=== PATIENT | male | born 1965 | race Caucasian/White ===

== ENCOUNTER 2016-05-14 15:50 | Inpatient (IN) | payer OTHER ==
[2016-05-14] MEDS ORDERED: Cardizem IV 50 MG/10 ML IV ONE ×6 (16:12→17:16)
[2016-05-14] MEDS ORDERED: CARDIZEM DRIP 100 MG/100 ML D5W 100 ML IV SCH (16:15)
[2016-05-14] MEDS ORDERED: CARDIZEM DRIP 100 MG/100 ML D5W 100 ML IV ONE (16:21)
[2016-05-14] MEDS ORDERED: Sodium Chloride 0.9% 1000 ML 1,000 ML ONE (16:25)
[2016-05-14] MEDS: Sodium Chloride 0.9% 1000 ML 1,000 ML IV SCH ×2 (16:27→20:11)
--- NOTE | 2016-05-14 16:37 | ERPHSYRPT ---
- History of Present Illness Source: patient Exam Limitations: clinical condition Patient Subjective Stated Complaint: PT STATES THAT TODAY HE STARTED FEELING A LITTLE NAUSEATED THIS MORNING STATES THAT WHEN HE STOOD UP THAT THE ROOM STARTED SPINNING STATES HE HAS A HX OF PE STATES HE TAKES COUMADIN STATES THAT HE HAS ALSO NOTICED HIS HEART BEATING SOMEWHAT FAST TODAY. Triage Nursing Assessment: PT ALERT AND ORIENTED X 3 PINK WARM AND DRY RESP EASY NON LABORED PT AMBULATED TO ROOM WITHOUT DIFFICULTY. PUPILS ROUND EQUAL AND REACTIVE. Physician History: Approximately 2 hours prior to admission patient noted palpitations and some dizziness with previous history of pulmonary embolism in the past 5 years ago and placed on Coumadin since that time. He has been on Toprol 25 twice a day since that time. Patient has not seen a script girl past several years Dr. Scales is his primary care provider. Has had no recent fever or chills. Takes his Coumadin religiously. No chest pain only the palpitations. No recent signs or symptoms of DVT. Timing/Duration: today Activities at Onset: none Quality: other (as above) Location: substernal Chest Pain Radiation: no radiation Severity of Pain-Max: none Modifying Factors: Improves With: nothing Nitro Today/Relief: no nitro taken today Aspirin Treatment Today: no aspirin today Associated Symptoms: other (transient dizziness) Prior Chest Pain/Cardiac Workup: no prior chest pain Allergies/Adverse Reactions: No Known Drug Allergies Allergy (Unverified 11/05/11 21:14) Home Medications: Metoprolol Tartrate 25 mg [Lopressor 25MG Tab] 25 mg PO BID 05/14/16 [ History] Warfarin Sodium 3 mg [Coumadin 3 MG] 3 mg PO DAILY 05/14/16 [History] Hx Tetanus, Diphtheria Vaccination/Date Given: No (UNKNOWN) Hx Influenza Vaccination/Date Given: No Hx Pneumococcal Vaccination/Date Given: No Immunizations Up to Date: Yes - Review of Systems Constitutional: Other (as noted in history of present illness) Eyes: No Symptoms Ears, Nose, & Throat: No Symptoms Respiratory: No Symptoms Cardiac: Palpitations Abdominal/Gastrointestinal: No Symptoms Genitourinary Symptoms: No Symptoms Musculoskeletal: No Symptoms Skin: No Symptoms Neurological: No Symptoms Psychological: No Symptoms, Memory Loss Hematologic/Lymphatic: No Symptoms Immunological/Allergic: No Symptoms - Past Medical History Pertinent Past Medical History: Yes Neurological History: No Pertinent History Cardiac History: Arrhythmia Respiratory History: Pulmonary Embolism Endocrine Medical History: No Pertinent History Musculoskeletal History: Osteoarthritis GI Medical History: Hepatitis Other Medical History: PE,AFIB - Past Surgical History Past Surgical History: Yes Other Surgical History: DETACHED RETINA - Social History Smoking Status: Former smoker Exposure to second hand smoke: Yes Drug Use: none Patient Lives Alone: No - Nursing Vital Signs Temperature: 97.6 F Temperature Source: Oral Pulse Rate: 141 Respiratory Rate: 18 - Physical Exam General Appearance: no apparent distress Eye Exam: PERRL/EOMI Ears, Nose, Throat Exam: normal ENT inspection Neck Exam: normal inspection, non-tender, supple, full range of motion Respiratory Exam: normal breath sounds, lungs clear, airway intact Cardiovascular Exam: irregular, capillary refill <2 sec Gastrointestinal/Abdomen Exam: soft, normal bowel sounds Male Genitalia Exam: normal genitalia Rectal Exam: deferred Back Exam: normal inspection Extremity Exam: normal inspection Neurologic Exam: alert, oriented x 3, cooperative Skin Exam: normal color, warm, dry Lymphatic Exam: No adenopathy SpO2 Interpretation: normal SpO2: 100 Oxygen Delivery: Room Air - Course Nursing assessment & vital signs reviewed: Yes EKG Interpreted by Me: RATE, Sinus Tach, Left Clayton Deviation, NORMAL INTERVALS, NORMAL QRS, Non-specific ST Changes, Other (patient with sinus tachycardia versus SVT with unfortunately on rhythm strip atrial fibrillation ) Rhythm Strip: Rate (150), Atrial Fibrillation - Radiology Exams Chest X-ray Interpretation: Reviewed by me, Discussed w/ radiologist, Negative Ordered Tests: Active Orders 24 hr Category Date Time Status Bedrest with BRP/BSC ROUTINE Activity 05/14/16 18:40 Active Admission/Status Order ROUTINE Care 05/14/16 18:40 Active Stretcher And Drier STAT Care 05/14/16 16:02 Active Code Status Order ROUTINE Care 05/14/16 18:40 Active EKG-ER Only STAT Care 05/14/16 16:02 Active IV Care Q1H Care 05/14/16 18:40 Active IV Insertion STAT Care 05/14/16 16:02 Active Miscellaneous Nursing Order ROUTINE Care 05/14/16 18:42 Active Prashanth Hose, Apply ROUTINE Care 05/14/16 18:40 Active Telemetry ROUTINE Care 05/14/16 18:40 Completed Weight,Daily 0600 Care 05/14/16 18:40 Active Cardiac Diet Diet 05/14/16 Dinner Active CHEST 1 VIEW (PORTABLE) Stat Exams 05/14/16 16:03 Completed BMP AM.LAB Lab 05/15/16 04:00 Ordered CBC W DIFF AM.LAB Lab 05/15/16 04:00 Ordered CBC W DIFF Stat Lab 05/14/16 16:08 Completed CMP Stat Lab 05/14/16 16:08 Completed D-DIMER QUANTITATION Stat Lab 05/14/16 16:08 Completed LIPID PROFILE AM.LAB Lab 05/15/16 04:00 Ordered MAGNESIUM Stat Lab 05/14/16 16:08 Completed NT PRO BNP Stat Lab 05/14/16 16:08 Completed PROTIME WITH INR AM.LAB Lab 05/15/16 04:00 Ordered PROTIME WITH INR Stat Lab 05/14/16 16:08 Completed PTT Stat Lab 05/14/16 16:08 Completed T4 Stat Lab 05/14/16 16:08 Completed TROPONIN Stat Lab 05/14/16 16:08 Completed TSH, 3RD Generation Stat Lab 05/14/16 16:08 Completed Medication Summary Generic Name Dose Route Start Last Admin Trade Name Freq PRN Reason Stop Dose Admin Acetaminophen 650 mg 05/14/16 18:39 Tylenol 325 Mg PO 06/13/16 18:38 Q4H PRN PRN PAIN AND/OR FEVER Sodium Chloride 1,000 mls @ 100 mls/hr 05/14/16 16:15 05/14/16 20:11 Sodium Chloride 0.9% 1000 Ml IV 06/13/16 16:14 100 mls/hr .Q10H RALPH Administration Diltiazem HCl 100 mls @ 20 mls/hr 05/14/16 18:00 Cardizem Drip 100 Mg/100 Ml D5w IV 06/13/16 17:59 .Q5H RALPH Sodium Chloride 500 mls @ 100 mls/hr 05/14/16 18:45 Sodium Chloride 0.9% 500 Ml IV 06/13/16 18:44 .Q5H RALPH Metoprolol Tartrate 25 mg 05/14/16 22:00 Lopressor 25mg Tab PO 06/13/16 21:59 BID RALPH Ondansetron HCl 4 mg 05/14/16 18:39 Zofran 4 Mg/2 Ml Vial IV 06/13/16 18:38 Q4H PRN PRN NAUSEA/VOMITING Discontinued Medications Generic Name Dose Route Start Last Admin Trade Name Freq PRN Reason Stop Dose Admin Diltiazem HCl 10 mg 05/14/16 16:12 05/14/16 16:28 Cardizem Iv 50 Mg/10 Ml IV 05/14/16 16:13 10 mg STAT ONE Administration Diltiazem HCl Confirm 05/14/16 16:22 Cardizem Iv 50 Mg/10 Ml Administered 05/14/16 16:23 Dose 50 mg IV .STK-MED ONE Diltiazem HCl 10 mg 05/14/16 16:44 05/14/16 16:50 Cardizem Iv 50 Mg/10 Ml IV 05/14/16 16:45 10 mg STAT ONE Administration Diltiazem HCl Confirm 05/14/16 16:49 Cardizem Iv 50 Mg/10 Ml Administered 05/14/16 16:50 Dose 50 mg IV .STK-MED ONE Diltiazem HCl 20 mg 05/14/16 17:01 05/14/16 17:18 Cardizem Iv 50 Mg/10 Ml IV 05/14/16 17:02 20 mg STAT ONE Administration Diltiazem HCl Confirm 05/14/16 17:16 Cardizem Iv 50 Mg/10 Ml Administered 05/14/16 17:17 Dose 50 mg IV .STK-MED ONE Diltiazem HCl 100 mls @ 10 mls/hr 05/14/16 16:15 05/14/16 16:29 Cardizem Drip 100 Mg/100 Ml D5w IV 06/13/16 16:14 10 mls/hr .Q10H RALPH Administration Protocol Diltiazem HCl Confirm 05/14/16 16:21 Cardizem Drip 100 Mg/100 Ml D5w Administered 05/14/16 16:22 Dose 100 mls @ ud IV .STK-MED ONE Sodium Chloride Confirm 05/14/16 16:25 Sodium Chloride 0.9% 1000 Ml Administered 05/14/16 16:26 Dose 1,000 mls @ ud .ROUTE .STK-MED ONE Lab/Rad Data: Laboratory Result Diagrams 05/14/16 16:08 05/14/16 16:08 Laboratory Results 05/14/16 05/14/16 05/14/16 Range/Units 16:08 16:08 16:08 WBC 8.2 (4.0-10.5) K/mm3 RBC 5.24 (4.1-5.6) M/mm3 Hgb 15.0 (12.5-18.0) gm/dl Hct 43.7 (42-50) % MCV 83.4 (78-100) fl MCH 28.6 (26-32) pg MCHC 34.3 (32-36) g/dl RDW 13.7 (11.5-14.0) % Plt Count 276 (150-450) K/mm3 MPV 10.3 H (6-9.5) fl Gran % 53.9 (36.0-66.0) % Lymphocytes % 34.1 (24.0-44.0) % Monocytes % 10.3 (0.0-12.0) % Eosinophils % 1.5 (0.00-5.0) % Basophils % 0.2 (0.0-0.4) % Basophils # 0.02 (0-0.4) INR 2.47 (0.8-3.0) PTT 48.0 H (24.1-36.1) SECONDS D-Dimer < 0.20 (0.00-0.49) mg/L Sodium 141 (136-145) mEq/L Potassium 3.5 (3.5-5.1) mEq/L Chloride 104 (98-107) mEq/L Carbon Dioxide 24.0 (21-32) mEq/L Anion Gap 16.3 H (5-15) MEQ/L BUN 11 (9-20) mg/dL Creatinine 1.12 (0.55-1.30) mg/dl Estimated GFR > 60 ML/MIN Glucose 130 H (70-110) MG/DL Calcium 9.1 (8.5-10.1) mg/dL Magnesium 1.9 (1.8-2.4) mg/dL Total Bilirubin 0.2 (0.2-1.0) mg/dL AST 34 (15-37) U/L ALT 30 (12-78) U/L Alkaline Phosphatase 91 (46-116) U/L Troponin I < 0.017 (0.000-0.056) ng/ml NT-Pro-B Natriuret Pep 720 H (0-125) pg/ml Serum Total Protein 8.2 (6.4-8.2) gm/dL Albumin 3.9 (3.4-5.0) g/dL Thyroxine (T4) 10.0 (4.7-13.3) UG/DL TSH 3rd Generation 1.998 (0.358-3.740) mIU/L - Progress Progress: improved Air Movement: good Progress Note: 05/14/16 18:35Despite Cardizem repeat boluses and increased intravenous infusion patient has not converted or slowed ventricular response at this time. After IV fluid bolus vital signs are stable. Case discussed with Dr. Scales as remainder of cardiac workup is negative and he will be admitted ICU on Cardizem drip and if does not convert in the next couple of hours further evaluation and treatment will be considered. This is in agreement to the patient and family. Blood Culture(s) Obtained: No Antibiotics given: No Discussed with : Yordy Will see patient in: hospital (observation) Counseled pt/family regarding: lab results, diagnosis, rad results - Departure Time of Disposition: 18:38 Departure Disposition: Observation Clinical Impression: Atrial fibrillation with RVR, SVT (supraventricular tachycardia) Condition: Fair Critical Care Time: No
[2016-05-14 16:41] LABS: BASOPHIL % 0.2 % (0.0-0.4); Eosinophil % 1.5 % (0.00-5.0); Granulocytes % 53.9 % (36.0-66.0); Lymphocytes % 34.1 % (24.0-44.0); Mean Cell Volume 83.4 fl (78-100); Mean Corpuscular Hemoglobin 28.6 pg (26-32); Mean Platelet Volume 10.3 fl (6-9.5); Monocytes % 10.3 % (0.0-12.0); Platelet Count 276 K/mm3 (150-450); Red Blood Count 5.24 M/mm3 (4.1-5.6); Red Cell Distribution Width 13.7 % (11.5-14.0); White Blood Count 8.2 K/mm3 (4.0-10.5)
--- NOTE | 2016-05-14 16:46 | XRAY ---
Indication: Tachycardia and dizziness. Comparison: November 05, 2011. Portable chest remains hyperinflated with stable blunting of the right costophrenic angle. Remaining lungs clear. Heart is not enlarged. Vascularity normal. Bony thorax intact again with mild degenerative changes. Impression: Stable nonacute hyperinflated chest with chronic features.
[2016-05-14 16:54] LABS: INR 2.47 (0.8-3.0); PROTIME 26.9 SECONDS (8.83-12.87)
[2016-05-14 17:17] LABS: ALBUMIN 3.9 g/dL (3.4-5.0); ALKALINE PHOSPHATASE 91 U/L (46-116); ANION GAP 16.3 MEQ/L (5-15); BILIRUBIN,TOTAL 0.2 mg/dL (0.2-1.0); BLOOD UREA NITROGEN 11 mg/dL (9-20); CHLORIDE 104 mEq/L (98-107); Glucose 130 MG/DL (70-110); MAGNESIUM 1.9 mg/dL (1.8-2.4); Potassium 3.5 mEq/L (3.5-5.1); SGOT/AST 34 U/L (15-37); SGPT/ALT 30 U/L (12-78); SODIUM 141 mEq/L (136-145); Total Protein 8.2 gm/dL (6.4-8.2)
[2016-05-14 17:18] LABS: TROPONIN < 0.017 ng/ml (0.000-0.056)
[2016-05-14] MEDS ORDERED: TYLENOL 325 MG PO PRN (18:39)
[2016-05-14] MEDS ORDERED: Zofran 4 MG/2 ML VIAL IV PRN (18:39)
[2016-05-14] MEDS ORDERED: Sodium Chloride 0.9% 500 ML 500 ML IV SCH (18:45)
[2016-05-14] MEDS: CARDIZEM DRIP 100 MG/100 ML D5W 100 ML IV SCH (20:54)
[2016-05-15] MEDS: Lopressor 25MG Tab PO SCH ×2 (02:17→09:10)
[2016-05-15 04:19] VITALS: O2SAT 97
[2016-05-15 05:13] LABS: BASOPHIL % 0.3 % (0.0-0.4); Eosinophil % 1.2 % (0.00-5.0); Granulocytes % 66.1 % (36.0-66.0); Lymphocytes % 23.2 % (24.0-44.0); Mean Cell Volume 83.9 fl (78-100); Mean Corpuscular Hemoglobin 28.5 pg (26-32); Mean Platelet Volume 9.6 fl (6-9.5); Monocytes % 9.2 % (0.0-12.0); Platelet Count 235 K/mm3 (150-450); Red Blood Count 4.92 M/mm3 (4.1-5.6); Red Cell Distribution Width 13.7 % (11.5-14.0); White Blood Count 7.6 K/mm3 (4.0-10.5)
[2016-05-15 05:33] LABS: INR 2.99 (0.8-3.0); PROTIME 32.4 SECONDS (8.83-12.87)
[2016-05-15] MEDS: Sodium Chloride 0.9% 1000 ML 1,000 ML IV SCH (06:11)
--- NOTE | 2016-05-15 07:51 | PCM.HP ---
History of Present Illness - Chief Complaint Chief Complaint: A fib with RVR History of Present Illness: is a 50 year old male who presented to the ER yesterday with dizziness and fatigue, was found to have atrial fibrilattion with rvr, he denies chest pain or dyspnea. has no complaints currently at rest. He has no cardiac history, has a history of PE in the past so is on coumadin. - Review of Systems Constitutional: Fatigue, No Fever, No Chills Respiratory: No Cough, No Short Of Breath Cardiac: No Chest Pain, No Syncope Abdominal/Gastrointestinal: No Abdominal Pain, No Nausea, No Vomiting, No Diarrhea Skin: No Rash Neurological: Dizziness All Other Systems: Reviewed and Negative Medications & Allergies Home Medications: Home Medication List Metoprolol Tartrate 25 mg [Lopressor 25MG Tab] 25 mg PO BID 05/14/16 [ History Confirmed 05/14/16] Warfarin Sodium 3 mg [Coumadin 3 MG] 3 mg PO DAILY 05/14/16 [History Confirmed 05/14/16] Allergies/Adverse Reactions: Allergies Allergy/AdvReac Type Severity Reaction Status Date / Time No Known Drug Allergies Allergy Unverified 11/05/11 21:14 - Past Medical History Past Medical History: Yes Neurological History: No Pertinent History Cardiac History: Arrhythmia Respiratory History: Pulmonary Embolism Endocrine Medical History: No Pertinent History Musculoskelatal History: Osteoarthritis GI Medical History: Hepatitis History: No Pertinent History Pyscho-Social History: No Pertinent History Male Reproductive Disorders: No Pertinent History Comment: PE,AFIB - Past Surgical History Past Surgical History: Yes Neuro Surgical History: No Pertinent History Cardiac History: Cardiac Catheterization Respiratory Surgery: No Pertinent History GI Surgical History: No Pertinent History Genitourinary Surgical Hx: No Pertinent History Musculskeletal Surgical Hx: No Pertinent History Male Surgical History: No Pertinent History Other Surgical History: DETACHED RETINA - Social History Smoking Status: Former smoker Exposure to second hand smoke: Yes Alcohol: None Drug Use: none - Physical Exam Vital Signs: Vital Signs - 24 hr Temp Pulse Resp BP Pulse Ox 05/15/16 07:25 97.9 F 155 H 18 103/58 97 05/15/16 04:00 125 H 16 95/74 97 05/15/16 00:01 78 05/15/16 00:00 98.0 F 78 16 93/67 99 05/14/16 23:07 103 H 109/66 05/14/16 22:00 86 87/68 05/14/16 20:46 97.6 F 141 H 18 100 05/14/16 19:40 98.0 F 154 H 18 95/69 96 05/14/16 17:50 148 H 18 99/73 100 05/14/16 17:23 145 H 22 112/82 05/14/16 16:56 144 H 18 106/76 99 05/14/16 16:36 145 H 18 113/73 99 05/14/16 16:35 143 H 18 101/73 99 05/14/16 15:55 97.6 F 141 H 18 121/82 100 General Appearance: no apparent distress, alert Neck Exam: normal inspection, non-tender, supple, full range of motion Respiratory Exam: normal breath sounds, lungs clear, No respiratory distress Cardiovascular Exam: tachycardia Gastrointestinal/Abdomen Exam: soft, normal bowel sounds, No tenderness, No mass Extremity Exam: normal inspection, normal range of motion, pelvis stable Skin Exam: normal color, warm, dry, No rash Results - Labs Lab/Micro Results: Lab Results-Last 24 Hours 05/15/16 05/15/16 05/15/16 Range/Units 04:45 04:45 04:45 WBC 7.6 (4.0-10.5) K/mm3 RBC 4.92 (4.1-5.6) M/mm3 Hgb 14.0 (12.5-18.0) gm/dl Hct 41.3 L (42-50) % MCV 83.9 (78-100) fl MCH 28.5 (26-32) pg MCHC 33.9 (32-36) g/dl RDW 13.7 (11.5-14.0) % Plt Count 235 (150-450) K/mm3 MPV 9.6 H (6-9.5) fl Gran % 66.1 H (36.0-66.0) % Lymphocytes % 23.2 L (24.0-44.0) % Monocytes % 9.2 (0.0-12.0) % Eosinophils % 1.2 (0.00-5.0) % Basophils % 0.3 (0.0-0.4) % Basophils # 0.02 (0-0.4) INR 2.99 (0.8-3.0) Glucose (70-110) MG/DL - Other Procedures and Tests Respiratory Therapy 05/16/16 05:00 EKG ROUTINE 05/17/16 05:00 EKG ROUTINE 05/18/16 05:00 EKG ROUTINE Assessment/Plan (1) Atrial fibrillation with RVR Current Visit: Yes Status: Acute Assessment & Plan: on review may in fact be 2:1 Atrial flutter, unable to increase cardizem gtt due to bp being 90's systolic so will add po digoxin at this time and consult with Dr Huerta, patient is on a beta jane already at home. Code(s): I48.91 - UNSPECIFIED ATRIAL FIBRILLATION
[2016-05-15] MEDS ORDERED: Lanoxin 0.125MG TABLET PO SCH (09:00)
[2016-05-15] MEDS: CARDIZEM DRIP 100 MG/100 ML D5W 100 ML IV SCH (09:09)
[2016-05-15] MEDS ORDERED: FLUZONE QUAD 2016-2017 SYRINGE 36MO-64YO IM ONE (11:00)
[2016-05-15 12:51] VITALS: BP 100/70; PULSE 158
== END 2016-05-15 15:55 | disposition short-term general hospital (02) | DRG 310 ==
LOC: ED 15:50 → ICU 19:17 → OBSVTOIN 19:17
PROVIDERS: ADMIT Family Medicine; ATTEND Family Medicine
DX: I48.91 Unspecified atrial fibrillation (principal); Z86.711 Personal history of pulmonary embolism; Z79.01 Long term (current) use of anticoagulants; M19.90 Unspecified osteoarthritis, unspecified site; K75.9 Inflammatory liver disease, unspecified
CPT/HCPCS: 36000; 36415; 71010; 80048; 80053; 83690; 83735; 83880; 84436; 84443; 84480; 84484; 85025; 85379; 85610; 85730; 93005; 93041; 96360; 96361; 96365; 96366; 96376; 99284; 99285; Q3014

== ENCOUNTER 2017-11-06 16:48 | Emergency (ER) | payer OTHER ==
--- NOTE | 2017-11-06 17:30 | ERPHSYRPT ---
- History of Present Illness Time Seen by Provider: 11/06/17 17:27 Source: patient Patient Subjective Stated Complaint: EPISODE OF DIZZINESS AT 1610 LASTING APPROX 10 TO 15 SECONDS. DENIES CP. STATES HAS HX A FIB THAT WAS CONVERTED 1 YEAR AGO WITH MED[facility]. Triage Nursing Assessment: ALERT AND AMBULATORY.. STATES EPISODE OF DIZZINESS TODAY FOR 10-15 SECONDS. DEBNIES CP AT THIS TIME. LUNGS CLEAR. DENIES RESPIRATORY PROBLEMS. Physician History: This is a 52-year-old white male with history of arrhythmia, pulmonary embolism , osteoarthritis, hepatitis He arrives with complaint of a 15 second period, during which patient felt dizzy and weak He denied any chest pain or shortness of breath Past medical history includes arrhythmia, pulmonary embolism, osteoarthritis, hepatitis, atrial fibrillation Past surgical history includes cardiac catheterization Social history patient denies tobacco alcohol or illicit drug use Timing/Duration: today Severity: moderate Modifying Factors: Improves With: nothing Associated Symptoms: other (palpitations and dizziness), No nausea, No vomiting , No abdominal pain, No shortness of breath, No heartburn, No diaphoresis, No cough, No chills, No chest pain, No fever, No headaches, No loss of appetite, No malaise, No rash, No syncope, No seizure, No weakness Allergies/Adverse Reactions: No Known Drug Allergies Allergy (Verified 11/06/17 18:18) Home Medications: Metoprolol Tartrate 25 mg [Lopressor 25MG Tab] 50 mg PO BID 05/14/16 [ History] Warfarin Sodium 3 mg [Coumadin 3 MG] 3 mg PO DAILY 05/14/16 [History] Hx Tetanus, Diphtheria Vaccination/Date Given: No (UNKNOWN) Hx Influenza Vaccination/Date Given: Yes Hx Pneumococcal Vaccination/Date Given: No Immunizations Up to Date: Yes - Review of Systems Constitutional: No Fever, No Chills Eyes: No Symptoms Ears, Nose, & Throat: No Symptoms Respiratory: No Cough, No Dyspnea Cardiac: Palpitations, No Chest Pain, No Edema, No Syncope, No Orthopnea, No PND Abdominal/Gastrointestinal: No Abdominal Pain, No Nausea, No Vomiting, No Diarrhea Genitourinary Symptoms: No Dysuria Musculoskeletal: No Back Pain, No Neck Pain Skin: No Rash Neurological: Dizziness, No Focal Weakness, No Gait Changes, No Irritability, No Lethargy, No Paralysis, No Parasthesia, No Seizure, No Sensory Changes, No Speech Changes, No Tics, No Tremors, No Vertigo Psychological: No Symptoms Endocrine: No Symptoms All Other Systems: Reviewed and Negative - Past Medical History Pertinent Past Medical History: Yes Neurological History: No Pertinent History Cardiac History: Arrhythmia Respiratory History: Pulmonary Embolism Endocrine Medical History: No Pertinent History Musculoskeletal History: Osteoarthritis GI Medical History: Hepatitis History: No Pertinent History Psycho-Social History: No Pertinent History Male Reproductive Disorders: No Pertinent History Other Medical History: PE,AFIB - Past Surgical History Past Surgical History: Yes Neuro Surgical History: No Pertinent History Cardiac: Cardiac Catheterization Respiratory: No Pertinent History Gastrointestinal: No Pertinent History Genitourinary: No Pertinent History Musculoskeletal: No Pertinent History Male Surgical History: No Pertinent History Other Surgical History: DETACHED RETINA - Social History Smoking Status: Never smoker Exposure to second hand smoke: No Drug Use: none Patient Lives Alone: No - Nursing Vital Signs Nursing Vital Signs: Initial Vital Signs Temperature 98.0 F 11/06/17 16:55 Pulse Rate 98 H 11/06/17 16:55 Respiratory Rate 20 11/06/17 16:55 Blood Pressure 105/68 11/06/17 16:55 O2 Sat by Pulse Oximetry 100 11/06/17 16:55 Pain Scale Pain Intensity 0 - Physical Exam General Appearance: no apparent distress, alert Eye Exam: PERRL/EOMI, eyes nml inspection Ears, Nose, Throat Exam: normal ENT inspection, TMs normal, pharynx normal, moist mucous membranes Neck Exam: normal inspection, non-tender, supple, full range of motion Respiratory Exam: normal breath sounds, lungs clear, No respiratory distress Cardiovascular Exam: regular rate/rhythm, normal heart sounds, normal peripheral pulses Gastrointestinal/Abdomen Exam: soft, normal bowel sounds, No tenderness, No mass Back Exam: normal inspection, normal range of motion, No CVA tenderness, No vertebral tenderness Extremity Exam: normal inspection, normal range of motion, pelvis stable Neurologic Exam: alert, oriented x 3, cooperative, normal mood/affect, nml cerebellar function, nml station & gait, sensation nml, No motor deficits Skin Exam: normal color, warm, dry, No rash SpO2 Interpretation: normal (100%) SpO2: 100 Oxygen Delivery: Room Air - Course Nursing assessment & vital signs reviewed: Yes EKG Interpreted by Me: RATE (97 bpm), Sinus Rhythm, NORMAL AXIS, Other (EKG: Sinus rhythm, 97 bpm, normal axis, no acute ST or T wave changes noted) Ordered Tests: Active Orders 24 hr Category Date Time Status IV Insertion STAT Care 11/06/17 17:03 Active Pulse Oximetry (ED) STAT Care 11/06/17 17:30 Active CBC W DIFF Stat Lab 11/06/17 17:30 Completed CMP Stat Lab 11/06/17 Completed D-DIMER QUANTITATION Stat Lab 11/06/17 17:30 Completed TROPONIN Q3H Lab 11/06/17 Completed TROPONIN Q3H Lab 11/06/17 20:30 Ordered TROPONIN Q3H Lab 11/06/17 23:30 Ordered TROPONIN Q3H Lab 11/07/17 02:30 Ordered TROPONIN Q3H Lab 11/07/17 05:30 Ordered Lab/Rad Data: Laboratory Result Diagrams 11/06/17 17:30 11/06/17 Unknown Laboratory Results 11/06/17 11/06/17 11/06/17 Range/Units Unknown Unknown 17:30 WBC (4.0-10.5) K/mm3 RBC (4.1-5.6) M/mm3 Hgb (12.5-18.0) gm/dl Hct (42-50) % MCV (78-100) fl MCH (26-32) pg MCHC (32-36) g/dl RDW (11.5-14.0) % Plt Count (150-450) K/mm3 MPV (6-9.5) fl Gran % (36.0-66.0) % Eos # (Auto) (0-0.5) Absolute Lymphs (auto) (1.0-4.6) Absolute Monos (auto) (0.0-1.3) Lymphocytes % (24.0-44.0) % Monocytes % (0.0-12.0) % Eosinophils % (0.00-5.0) % Basophils % (0.0-0.4) % Absolute Granulocytes (1.4-6.9) Basophils # (0-0.4) D-Dimer < 215 L (215-500) ng/mL Sodium 140 (137-145) mmol/L Potassium 3.8 (3.5-5.1) mmol/L Chloride 101 (98-107) mmol/L Carbon Dioxide 24 (22-30) mmol/L Anion Gap 18.2 H (5-15) MEQ/L BUN 20 (9-20) mg/dL Creatinine 0.96 (0.66-1.25) mg/dL Estimated GFR > 60.0 ML/MIN Glucose 127 H (74-106) mg/dL Calcium 9.5 (8.4-10.2) mg/dL Total Bilirubin 0.60 (0.2-1.3) mg/dL AST 34 (17-59) U/L ALT 21 (0-50) U/L Alkaline Phosphatase 73 (38-126) U/L Troponin I < 0.012 (0.000-0.034) ng/mL Serum Total Protein 8.3 H (6.3-8.2) g/dL Albumin 5.0 (3.5-5.0) g/dL 11/06/17 Range/Units 17:30 WBC 9.0 (4.0-10.5) K/mm3 RBC 5.25 (4.1-5.6) M/mm3 Hgb 15.3 (12.5-18.0) gm/dl Hct 43.8 (42-50) % MCV 83.4 (78-100) fl MCH 29.1 (26-32) pg MCHC 34.9 (32-36) g/dl RDW 13.4 (11.5-14.0) % Plt Count 268 (150-450) K/mm3 MPV 10.8 H (6-9.5) fl Gran % 49.7 (36.0-66.0) % Eos # (Auto) 0.17 (0-0.5) Absolute Lymphs (auto) 3.31 (1.0-4.6) Absolute Monos (auto) 1.02 (0.0-1.3) Lymphocytes % 36.9 (24.0-44.0) % Monocytes % 11.4 (0.0-12.0) % Eosinophils % 1.9 (0.00-5.0) % Basophils % 0.1 (0.0-0.4) % Absolute Granulocytes 4.45 (1.4-6.9) Basophils # 0.01 (0-0.4) D-Dimer (215-500) ng/mL Sodium (137-145) mmol/L Potassium (3.5-5.1) mmol/L Chloride (98-107) mmol/L Carbon Dioxide (22-30) mmol/L Anion Gap (5-15) MEQ/L BUN (9-20) mg/dL Creatinine (0.66-1.25) mg/dL Estimated GFR ML/MIN Glucose (74-106) mg/dL Calcium (8.4-10.2) mg/dL Total Bilirubin (0.2-1.3) mg/dL AST (17-59) U/L ALT (0-50) U/L Alkaline Phosphatase (38-126) U/L Troponin I (0.000-0.034) ng/mL Serum Total Protein (6.3-8.2) g/dL Albumin (3.5-5.0) g/dL - Progress Progress: improved Progress Note: 11/06/17 18:53 This is a 52-year-old white male with history of arrhythmia, pulmonary embolism , osteoarthritis, hepatitis he has had atrial fibrillation in the past He arrives with complaint of approximately 15 seconds of dizziness and 10-15 minutes of feeling like his heart was racing prior to arrival in the emergency room he did not have any chest pain. On arrival patient is stable his vitals are stable patient's EKG is remarkable for sinus rhythm 97 bpm normal axis no acute ST or T wave changes patient's chemistry is normal patient's troponin is less than 0.012D dimer is normal patient's chemistry and CBC are essentially normal patient has not had any dysrhythmias while he was here. Will go ahead and discharge patient. Diagnoses palpitations. Dizziness. History of atrial fibrillation. - Departure Time of Disposition: 18:55 Departure Disposition: Home Clinical Impression: Palpitations, History of atrial fibrillation, Dizziness Condition: Fair Critical Care Time: No Referrals: LEONOR JESUS MD [Primary Care Provider] - Additional Instructions: Return home Plenty of fluids. Rest Follow-up with your family doctor. Return for acute distress or for severe symptoms. Continue your current medications and treatments.
[2017-11-06 17:52] LABS: BASOPHIL % 0.1 % (0.0-0.4); Basophil (Absolute #) 0.01 (0-0.4); Eosinophil % 1.9 % (0.00-5.0); Eosinophil (Absolute #) 0.17 (0-0.5); Granulocyte Absolute (ANC) 4.45 (1.4-6.9); Granulocytes % 49.7 % (36.0-66.0); Hematocrit 43.8 % (42-50); Hemoglobin 15.3 gm/dl (12.5-18.0); Lymphocyte (Absolute #) 3.31 (1.0-4.6); Lymphocytes % 36.9 % (24.0-44.0); Mean Cell Volume 83.4 fl (78-100); Mean Corpuscular Hemoglobin 29.1 pg (26-32); Mean Corpuscular Hgb Concent. 34.9 g/dl (32-36); Mean Platelet Volume 10.8 fl (6-9.5); Monocyte (Absolute #) 1.02 (0.0-1.3); Monocytes % 11.4 % (0.0-12.0); Platelet Count 268 K/mm3 (150-450); Red Blood Count 5.25 M/mm3 (4.1-5.6); Red Cell Distribution Width 13.4 % (11.5-14.0)
[2017-11-06 17:58] LABS: ALKALINE PHOSPHATASE 73 U/L (38-126); ANION GAP 18.2 MEQ/L (5-15); BLOOD UREA NITROGEN 20 mg/dL (9-20); CHLORIDE 101 mmol/L (98-107); Calcium 9.5 mg/dL (8.4-10.2); Carbon Dioxide 24 mmol/L (22-30); Creatinine 1 0.96 mg/dL (0.66-1.25); Glucose 127 mg/dL (74-106); Potassium 3.8 mmol/L (3.5-5.1); SGOT/AST 34 U/L (17-59); SGPT/ALT 21 U/L (0-50); SODIUM 140 mmol/L (137-145); Total Protein 8.3 g/dL (6.3-8.2)
[2017-11-06 19:05] VITALS: BP 108/75; PULSE 76; O2SAT 98
== END 2017-11-06 19:10 | disposition home or self-care (01) ==
LOC: ED 16:48
DX: R00.2 Palpitations (principal); I48.0 Paroxysmal atrial fibrillation; R42 Dizziness and giddiness; Z86.718 Personal history of other venous thrombosis and embolism; Z79.01 Long term (current) use of anticoagulants; Z79.899 Other long term (current) drug therapy
CPT/HCPCS: 36000; 36415; 80053; 84484; 85025; 85379; 93005; 93041; 99284

== ENCOUNTER 2018-01-19 21:29 | Observation (INO) | payer OTHER ==
--- NOTE | 2018-01-19 22:07 | ERPHSYRPT ---
- History of Present Illness Time Seen by Provider: 01/19/18 21:59 Source: patient Exam Limitations: no limitations Physician History: The patient is a 52-year-old male complaining of a sudden onset of rapid heart rate and palpitations that began about one hour ago. He denies chest pain. He denies shortness of breath. He has a history of atrial fibrillation. He noticed an hour ago that his heart was beating rapidly. He's had this happen before and has been hospitalized for it. His past medical history is significant for atrial fibrillation, hypertension, and hepatitis B. Timing/Duration: today, hour(s) (1), sudden Activities at Onset: none Quality: other (palpitations) Location: central Chest Pain Radiation: no radiation Severity of Pain-Max: none Severity of Pain-Current: none Modifying Factors: Improves With: nothing Nitro Today/Relief: no nitro taken today Aspirin Treatment Today: no aspirin today Associated Symptoms: denies symptoms Prior Chest Pain/Cardiac Workup: no prior chest pain Allergies/Adverse Reactions: Antihistamines - Alkylamine Allergy (Verified 01/19/18 22:06) Home Medications: Metoprolol Tartrate 25 mg [Lopressor 25MG Tab] 50 mg PO BID 05/14/16 [ History] Warfarin Sodium 3 mg [Coumadin 3 MG] 3 mg PO DAILY 05/14/16 [History] Hx Tetanus, Diphtheria Vaccination/Date Given: No (UNKNOWN) Hx Influenza Vaccination/Date Given: Yes Hx Pneumococcal Vaccination/Date Given: No - Review of Systems Constitutional: No Fever, No Chills Eyes: No Symptoms Ears, Nose, & Throat: No Symptoms Respiratory: No Cough, No Dyspnea Cardiac: Palpitations Abdominal/Gastrointestinal: No Abdominal Pain, No Nausea, No Vomiting, No Diarrhea Genitourinary Symptoms: No Dysuria Musculoskeletal: No Back Pain, No Neck Pain Skin: No Rash Neurological: No Dizziness, No Focal Weakness, No Sensory Changes Psychological: No Symptoms Endocrine: No Symptoms Hematologic/Lymphatic: No Symptoms Immunological/Allergic: No Symptoms All Other Systems: Reviewed and Negative - Past Medical History Pertinent Past Medical History: Yes Neurological History: No Pertinent History Cardiac History: Arrhythmia Respiratory History: Pulmonary Embolism Endocrine Medical History: No Pertinent History Musculoskeletal History: Osteoarthritis GI Medical History: Hepatitis History: No Pertinent History Psycho-Social History: No Pertinent History Male Reproductive Disorders: No Pertinent History Other Medical History: PE,AFIB - Past Surgical History Past Surgical History: Yes Neuro Surgical History: No Pertinent History Cardiac: Cardiac Catheterization Respiratory: No Pertinent History Gastrointestinal: No Pertinent History Genitourinary: No Pertinent History Musculoskeletal: No Pertinent History Male Surgical History: No Pertinent History Other Surgical History: DETACHED RETINA - Social History Smoking Status: Never smoker Exposure to second hand smoke: No Drug Use: none Patient Lives Alone: No - Nursing Vital Signs Nursing Vital Signs: Initial Vital Signs Temperature 98.3 F 01/19/18 21:54 Pulse Rate 184 H 01/19/18 21:54 Respiratory Rate 24 01/19/18 21:54 Blood Pressure 133/79 01/19/18 21:54 O2 Sat by Pulse Oximetry 98 01/19/18 21:54 Pain Scale Pain Intensity 0 - Physical Exam General Appearance: no apparent distress, alert Eye Exam: PERRL/EOMI, eyes nml inspection Ears, Nose, Throat Exam: normal ENT inspection, moist mucous membranes Neck Exam: normal inspection, non-tender, supple Respiratory Exam: normal breath sounds, lungs clear, No respiratory distress Cardiovascular Exam: tachycardia, irregular Gastrointestinal/Abdomen Exam: soft, No tenderness, No mass Rectal Exam: not done Back Exam: normal inspection, No CVA tenderness, No vertebral tenderness Extremity Exam: normal inspection, normal range of motion Neurologic Exam: alert, oriented x 3, cooperative, normal mood/affect, nml cerebellar function, sensation nml, No motor deficits Skin Exam: normal color, warm, dry Lymphatic Exam: No adenopathy SpO2 Interpretation: normal Oxygen Delivery: Room Air - Course EKG Interpreted by Me: RATE, SVT, NORMAL AXIS - Radiology Exams Chest X-ray Interpretation: Interpreted by me, Negative (comp 1V chest 05/14/16.) Ordered Tests: Active Orders 24 hr Category Date Time Status Clean Catch Urine Specimen STAT Care 01/19/18 22:13 Active EKG-ER Only STAT Care 01/19/18 22:13 Active EKG-ER Only STAT Care 01/19/18 23:15 Active IV Insertion STAT Care 01/19/18 22:13 Active CHEST 1 VIEW (PORTABLE) Stat Exams 01/19/18 22:14 Taken CBC W DIFF Stat Lab 01/19/18 22:06 Completed CMP Stat Lab 01/19/18 22:06 Completed TROPONIN Q3H Lab 01/19/18 22:06 Completed TROPONIN Q3H Lab 01/20/18 01:15 Ordered TROPONIN Q3H Lab 01/20/18 04:15 Ordered TROPONIN Q3H Lab 01/20/18 07:15 Ordered TROPONIN Q3H Lab 01/20/18 10:15 Ordered UA W/RFX UR CULTURE Stat Lab 01/19/18 22:13 Ordered Urine Triage Profile Stat Lab 01/19/18 22:13 Ordered Medication Summary Discontinued Medications Generic Name Dose Route Start Last Admin Trade Name Freq PRN Reason Stop Dose Admin Adenosine 6 mg 01/19/18 22:14 01/19/18 22:30 Adenocard Iv 6 Mg/2 Ml IV 01/19/18 22:15 6 mg STAT ONE Administration Adenosine Confirm 01/19/18 22:14 Adenocard Iv 6 Mg/2 Ml Administered 01/19/18 22:15 Dose 6 mg IV .STK-MED ONE Diltiazem HCl Confirm 01/19/18 23:22 Cardizem Iv 50 Mg/10 Ml Administered 01/19/18 23:23 Dose 50 mg IV .STK-MED ONE Diltiazem HCl 20 mg 01/20/18 01:09 01/19/18 22:45 Cardizem Iv 50 Mg/10 Ml IV 01/20/18 01:10 20 mg STAT ONE Administration Lab/Rad Data: Laboratory Result Diagrams 01/19/18 22:06 01/19/18 22:06 Laboratory Results 01/19/18 01/19/18 01/19/18 Range/Units 22:06 22:06 22:06 WBC 9.9 (4.0-10.5) K/mm3 RBC 5.08 (4.1-5.6) M/mm3 Hgb 14.7 (12.5-18.0) gm/dl Hct 42.7 (42-50) % MCV 84.1 (78-100) fl MCH 28.9 (26-32) pg MCHC 34.4 (32-36) g/dl RDW 13.6 (11.5-14.0) % Plt Count 261 (150-450) K/mm3 MPV 10.7 H (6-9.5) fl Gran % 56.0 (36.0-66.0) % Eos # (Auto) 0.28 (0-0.5) Absolute Lymphs (auto) 2.90 (1.0-4.6) Absolute Monos (auto) 1.16 (0.0-1.3) Lymphocytes % 29.3 (24.0-44.0) % Monocytes % 11.7 (0.0-12.0) % Eosinophils % 2.8 (0.00-5.0) % Basophils % 0.2 (0.0-0.4) % Absolute Granulocytes 5.54 (1.4-6.9) Basophils # 0.02 (0-0.4) Sodium 138 (137-145) mmol/L Potassium 3.5 (3.5-5.1) mmol/L Chloride 103 (98-107) mmol/L Carbon Dioxide 22 (22-30) mmol/L Anion Gap 16.4 H (5-15) MEQ/L BUN 21 H (9-20) mg/dL Creatinine 1.02 (0.66-1.25) mg/dL Estimated GFR > 60.0 ML/MIN Glucose 196 H (74-106) mg/dL Calcium 9.6 (8.4-10.2) mg/dL Total Bilirubin 0.40 (0.2-1.3) mg/dL AST 30 (17-59) U/L ALT 20 (0-50) U/L Alkaline Phosphatase 106 (38-126) U/L Troponin I < 0.012 (0.000-0.034) ng/mL Serum Total Protein 8.0 (6.3-8.2) g/dL Albumin 4.8 (3.5-5.0) g/dL - Progress Progress: improved Air Movement: good Progress Note: 01/19/18 22:43 Adenosine 6 mg IV showed brief halt in rhythm that immediately resumed to tachycardia at 170 bpm. will give diltiaze, 20 mg IV. Blood Culture(s) Obtained: No Antibiotics given: No Discussed with Dr.: Elizabeth (for Dr Jesus) Will see patient in: hospital (observation) Counseled pt/family regarding: lab results, diagnosis, rad results - Departure Time of Disposition: 01:15 Departure Disposition: Observation (Dr Johnson for Dr Jesus) Clinical Impression: Atrial fibrillation with RVR Condition: Stable Critical Care Time: No Referrals: LEONOR JESUS MD [Primary Care Provider] -
[2018-01-19] MEDS ORDERED: Adenocard IV 6 MG/2 ML IV ONE ×2 (22:14)
[2018-01-19 22:28] LABS: BASOPHIL % 0.2 % (0.0-0.4); Basophil (Absolute #) 0.02 (0-0.4); Eosinophil % 2.8 % (0.00-5.0); Eosinophil (Absolute #) 0.28 (0-0.5); Granulocyte Absolute (ANC) 5.54 (1.4-6.9); Hematocrit 42.7 % (42-50); Hemoglobin 14.7 gm/dl (12.5-18.0); Lymphocytes % 29.3 % (24.0-44.0); Mean Cell Volume 84.1 fl (78-100); Mean Corpuscular Hemoglobin 28.9 pg (26-32); Mean Corpuscular Hgb Concent. 34.4 g/dl (32-36); Mean Platelet Volume 10.7 fl (6-9.5); Monocyte (Absolute #) 1.16 (0.0-1.3); Monocytes % 11.7 % (0.0-12.0); Platelet Count 261 K/mm3 (150-450); Red Blood Count 5.08 M/mm3 (4.1-5.6); Red Cell Distribution Width 13.6 % (11.5-14.0); White Blood Count 9.9 K/mm3 (4.0-10.5)
[2018-01-19] MEDS ORDERED: DILTIAZEM HCL 25 MG/5 ML VIAL IV STA (22:46)
[2018-01-19 22:51] LABS: ALBUMIN 4.8 g/dL (3.5-5.0); ALKALINE PHOSPHATASE 106 U/L (38-126); ANION GAP 16.4 MEQ/L (5-15); BLOOD UREA NITROGEN 21 mg/dL (9-20); CHLORIDE 103 mmol/L (98-107); Calcium 9.6 mg/dL (8.4-10.2); Carbon Dioxide 22 mmol/L (22-30); Creatinine 1 1.02 mg/dL (0.66-1.25); Glucose 196 mg/dL (74-106); Potassium 3.5 mmol/L (3.5-5.1); SGOT/AST 30 U/L (17-59); SGPT/ALT 20 U/L (0-50); SODIUM 138 mmol/L (137-145)
[2018-01-19] MEDS ORDERED: Cardizem IV 50 MG/10 ML IV ONE (23:22)
[2018-01-20] MEDS ORDERED: Cardizem IV 50 MG/10 ML IV ONE (01:09)
[2018-01-20 01:27] LABS: Amphetamine,Urine NEGATIVE (NEGATIVE); Barbiturate,Urine NEGATIVE (NEGATIVE); Benzodiazepine,Urine NEGATIVE (NEGATIVE); Cocaine,Urine NEGATIVE (NEGATIVE); Methadone,Urine NEGATIVE (NEGATIVE); Opiate,Urine NEGATIVE (NEGATIVE); PCP,Urine NEGATIVE (NEGATIVE); THC,Urine NEGATIVE (NEGATIVE)
[2018-01-20 01:47] LABS: Appearance CLEAR (CLEAR); Bilirubin NEGATIVE (NEGATIVE); Blood NEGATIVE Ery/ul (0-5); Glucose 50 mg/dL (NEGATIVE); Ketones NEGATIVE (NEGATIVE); Leukocyte Esterase NEGATIVE (NEGATIVE); Nitrite NEGATIVE (NEGATIVE); Protein,Urine Dip NEGATIVE (Negative); Specific Gravity 1.017 (1.005-1.025); Urobilinogen NEGATIVE mg/dL (0-1)
[2018-01-20] MEDS ORDERED: Zofran 4 MG/2 ML VIAL IV PRN (02:50)
[2018-01-20] MEDS ORDERED: TYLENOL 325 MG PO PRN (02:50)
[2018-01-20 06:09] LABS: BASOPHIL % 0.4 % (0.0-0.4); Basophil (Absolute #) 0.03 (0-0.4); Eosinophil % 1.7 % (0.00-5.0); Eosinophil (Absolute #) 0.14 (0-0.5); Granulocyte Absolute (ANC) 5.09 (1.4-6.9); Granulocytes % 60.4 % (36.0-66.0); Hematocrit 36.9 % (42-50); Hemoglobin 12.7 gm/dl (12.5-18.0); Lymphocyte (Absolute #) 2.07 (1.0-4.6); Lymphocytes % 24.6 % (24.0-44.0); Mean Cell Volume 84.6 fl (78-100); Mean Corpuscular Hemoglobin 29.1 pg (26-32); Mean Corpuscular Hgb Concent. 34.4 g/dl (32-36); Mean Platelet Volume 9.9 fl (6-9.5); Monocyte (Absolute #) 1.09 (0.0-1.3); Monocytes % 12.9 % (0.0-12.0); Platelet Count 219 K/mm3 (150-450); Red Blood Count 4.36 M/mm3 (4.1-5.6); Red Cell Distribution Width 13.4 % (11.5-14.0); White Blood Count 8.4 K/mm3 (4.0-10.5)
[2018-01-20 06:38] LABS: ANION GAP 11.6 MEQ/L (5-15); BLOOD UREA NITROGEN 13 mg/dL (9-20); CHLORIDE 105 mmol/L (98-107); Calcium 8.9 mg/dL (8.4-10.2); Carbon Dioxide 25 mmol/L (22-30); Glucose 99 mg/dL (74-106); Potassium 3.4 mmol/L (3.5-5.1); SODIUM 138 mmol/L (137-145)
[2018-01-20 07:28] VITALS: BP 109/64; PULSE 73; O2SAT 98
--- NOTE | 2018-01-20 09:09 | XRAY ---
Indication: Palpitations. Comparison: May 14, 2016. Portable chest remains hyperinflated and clear with chronic right costophrenic angle blunting. Heart and mediastinal structures within normal limits. Bony thorax intact again with mild degenerative changes. No new/acute findings. Impression: Stable nonacute hyperinflated chest with chronic features.
[2018-01-20] MEDS ORDERED: Sodium Chloride 0.9% 10 ML FLUSH Syringe IV PRN (09:23)
[2018-01-20] MEDS ORDERED: Cardizem CD 120 MG PO SCH (10:00)
--- NOTE | 2018-01-20 11:31 | SSS ---
DISCHARGE DIAGNOSIS: ATRIAL FIBRILLATION WITH RAPID VENTRICULAR RESPONSE, CONVERTED. HISTORY: The patient is 52 year-old white male patient who presented to the emergency room with rapid heartbeat. The patient has a history of previous episodes of atrial fibrillation with rapid ventricular response that has been treated successfully as an outpatient. He reports this dates back to the time when he had pulmonary embolism several years ago. He is on medications to control this although he has recently had a head cold that has gone down in the chest and with the medications he has been taking, dehydration it has stimulated him to go into atrial fibrillation. He was seen in the emergency room and treated initially with adenosine which did not work. He was then given Cardizem IV which did convert him back to sinus rhythm after that time. The patient was placed in the hospital for observation overnight. PAST MEDICAL HISTORY: Otherwise remarkable for osteoarthritis. He has had previous hepatitis. Again, he has had pulmonary embolism and atrial fibrillation. HOME MEDICATIONS: Currently include Delsym which he has been using for cough which he has been instructed to discontinue. He has been taking Lopressor 25 mg 2 tablets b.i.d. He takes tetrahydrozoline eye drops and warfarin 3 mg daily as a blood thinner. ALLERGIES: ANTIHISTAMINES. PHYSICAL EXAMINATION: Revealed a well-nourished, well-developed 52 year-old white male patient in no obvious distress. HEENT: Normocephalic, atraumatic. Pupils equal round reactive to light. Extraocular movements intact. Oropharynx is pink and moist. NECK: Supple without lymphadenopathy, thyromegaly or JVD. CHEST: Clear to auscultation with good air movement bilaterally. HEART: Currently regular rate and rhythm without murmurs, rubs or gallops. When he came in his pulse was 184, temperature 98.3F, respiratory rate 24, blood pressure 133/79 with an O2 saturation of 98%. ABDOMEN: Soft without hepatosplenomegaly or masses. EXTREMITIES: Without clubbing, cyanosis or edema. NEUROLOGIC: The patient is alert and oriented x3. LAB DATA AND TESTS: Showed his troponins to be at the highest 0.017. He had essentially ruled out for myocardial infarction. His CBC showed white blood cell count 8,400, hemoglobin 12.7, PLT count 219,000. Metabolic panel showed sugar 99, BUN 13, creatinine 0.8. Electrolytes were normal other than slightly low potassium 3.4. UA was essentially normal. Urine drug screen was negative. His EKG initially showed atrial fibrillation with rapid ventricular response and since that time he has been in sinus rhythm with occasional PVC's. 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 He actually said he saw Dr. Luong last week that he was instructed to increase his fluid intake and to stay away [id number] decongestants and follow up with his primary care doctor, Dr. Scales, next week as well.
[2018-01-20] MEDS ORDERED: Sodium Chloride 0.9% 10 ML FLUSH Syringe IV SCH (14:00)
[2018-01-21] MEDS ORDERED: FLUZONE QUAD (36mo-64yo) 2018-2019 SYRINGE IM ONE (10:00)
== END 2018-01-20 10:40 | disposition home or self-care (01) ==
LOC: ED 21:29 → MED SURG 01-20 02:48
PROVIDERS: ADMIT Family Medicine; ATTEND Family Medicine
DX: I48.91 Unspecified atrial fibrillation (principal); I26.99 Other pulmonary embolism without acute cor pulmonale; M19.90 Unspecified osteoarthritis, unspecified site; K75.9 Inflammatory liver disease, unspecified
CPT/HCPCS: 36000; 36415; 71045; 80048; 80053; 80307; 81001; 84484; 85025; 93005; 93268; 96374; 96375; 99285; J0153; G0378

== ENCOUNTER 2018-04-10 23:39 | Observation (INO) | payer OTHER ==
[2018-04-10] MEDS ORDERED: Sodium Chloride 0.9% 1000 ML 1,000 ML IV SCH (23:45)
[2018-04-10] MEDS ORDERED: Cardizem IV 50 MG/10 ML IV ONE ×2 (23:46→23:49)
[2018-04-10] MEDS ORDERED: CARDIZEM DRIP 100 MG/100 ML D5W 100 ML IV PRN (23:47)
[2018-04-10] MEDS ORDERED: CARDIZEM DRIP 100 MG/100 ML D5W 100 ML IV ONE (23:51)
--- NOTE | 2018-04-10 23:54 | ERPHSYRPT ---
- History of Present Illness Time Seen by Provider: 04/10/18 23:45 Source: patient Exam Limitations: clinical condition Physician History: PATIENT WITH A HISTORY OF PULMONARY EMBOLISM, AND ATRIAL FIBRILLATION COMPLAINS OF PALPITATIONS AT WORK TODAY. DENIES DYSPNEA, CHEST PAIN OR DIAPHORESIS. Timing/Duration: today Activities at Onset: activity Quality: other (DENIES CHEST PAIN) Severity of Pain-Max: none Severity of Pain-Current: none Modifying Factors: Improves With: exertion Nitro Today/Relief: no nitro taken today Aspirin Treatment Today: no aspirin today Prior Chest Pain/Cardiac Workup: no prior chest pain Allergies/Adverse Reactions: Antihistamines - Alkylamine Allergy (Mild, Verified 04/10/18 23:55) Fatigue Home Medications: Ketotifen Fumarate [Refresh] 0.5 ml OP DAILY PRN PRN 03/11/18 [History] Metoprolol Tartrate 50 mg [Lopressor 50 MG] 50 mg PO BID 03/11/18 [History ] Warfarin Sodium 3 mg [Coumadin 3 MG] 3 mg PO DAILY@1400 03/11/18 [History] Hx Tetanus, Diphtheria Vaccination/Date Given: No (UNKNOWN) Hx Influenza Vaccination/Date Given: Yes Hx Pneumococcal Vaccination/Date Given: No - Review of Systems Constitutional: No Fever, No Chills Eyes: No Symptoms Ears, Nose, & Throat: No Symptoms Respiratory: No Cough, No Dyspnea Cardiac: Palpitations, No Chest Pain, No Edema, No Syncope Abdominal/Gastrointestinal: No Symptoms, No Abdominal Pain, No Nausea, No Vomiting, No Diarrhea Genitourinary Symptoms: No Symptoms, No Dysuria Musculoskeletal: No Symptoms, No Back Pain, No Neck Pain Skin: No Symptoms, No Rash Neurological: No Dizziness, No Focal Weakness, No Sensory Changes Psychological: No Symptoms Endocrine: No Symptoms All Other Systems: Reviewed and Negative - Past Medical History Pertinent Past Medical History: Yes Neurological History: No Pertinent History ENT History: Cataracts, Other (DETACHED RETINA MANY YEARS AGO) Cardiac History: High Cholesterol Respiratory History: Pneumonia, Pulmonary Embolism Endocrine Medical History: No Pertinent History Musculoskeletal History: Rheumatoid Arthritis GI Medical History: Hepatitis History: No Pertinent History Psycho-Social History: Panic Disorder Male Reproductive Disorders: No Pertinent History Other Medical History: PE 11-05-11 History Afib. Heb B back in 1992, Ankylosing Spondylitis Form of RA. Last time treated for Panic Disorder 2011 - Past Surgical History Past Surgical History: Yes Neuro Surgical History: No Pertinent History Cardiac: Cardiac Catheterization Respiratory: No Pertinent History Gastrointestinal: No Pertinent History Genitourinary: No Pertinent History Musculoskeletal: No Pertinent History Male Surgical History: No Pertinent History Other Surgical History: Dental surgery - Social History Smoking Status: Former smoker Exposure to second hand smoke: No Drug Use: none Patient Lives Alone: No - Nursing Vital Signs Nursing Vital Signs: Initial Vital Signs Temperature 98.0 F 04/10/18 23:43 Pulse Rate 168 H 04/10/18 23:43 Respiratory Rate 18 04/10/18 23:43 Blood Pressure 112/89 04/10/18 23:43 O2 Sat by Pulse Oximetry 98 04/10/18 23:43 Pain Scale Pain Intensity 0 - Course EKG Interpreted by Me: RATE, A-fib, NORMAL AXIS Ordered Tests: Active Orders 24 hr Category Date Time Status Up With Assistance ROUTINE Activity 04/11/18 01:12 Ordered Glove Turner And Former STAT Care 04/10/18 23:45 Active Code Status Order ROUTINE Care 04/11/18 01:16 Ordered EKG-ER Only STAT Care 04/10/18 23:45 Active IV Care Q6H Care 04/11/18 01:16 Ordered IV Insertion STAT Care 04/10/18 23:45 Active Oxygen-ED Only NASAL CANNULA 2 lpm Care 04/10/18 23:[address] in Observation ROUTINE Care 04/11/18 01:17 Ordered Vital Signs .[id number],q1hx2,[id number] Care 04/11/18 01:12 Ordered Cardiac Diet Diet 04/11/18 Breakfast Ordered CHEST 1 VIEW (PORTABLE) Stat Exams 04/10/18 23:45 Taken CBC W DIFF Stat Lab 04/10/18 23:45 Completed CMP Stat Lab 04/10/18 23:45 Completed NT PRO BNP Stat Lab 04/10/18 23:45 Completed PROTIME WITH INR Stat Lab 04/10/18 23:45 Received TROPONIN Q3H Lab 04/10/18 23:45 Completed TROPONIN Q3H Lab 04/11/18 02:45 Ordered TROPONIN Q3H Lab 04/11/18 05:45 Ordered TROPONIN Q3H Lab 04/11/18 08:45 Ordered TROPONIN Q3H Lab 04/11/18 11:45 Ordered EKG REPEAT IN AM RT 04/11/18 07:00 Ordered Oxygen NASAL CANNULA 2 lpm RT 04/11/18 01:12 Ordered Transfer Order Routine Transfer 04/11/18 Ordered Medication Summary Generic Name Dose Route Start Last Admin Trade Name Harish PRN Reason Stop Dose Admin Sodium Chloride 1,000 mls @ 100 mls/hr 04/10/18 23:45 04/10/18 23:56 Sodium Chloride 0.9% 1000 Ml IV 05/10/18 23:44 100 mls/hr .Q10H RALPH Administration Diltiazem HCl 100 mls @ 10 mls/hr 04/10/18 23:47 04/11/18 00:03 Cardizem Drip 100 Mg/100 Ml D5w IV 05/10/18 23:46 10 mg/hr .Q10H PRN 10 mls/hr HEART RATE/ A-FIB Administration Protocol 10 MG/HR Discontinued Medications Generic Name Dose Route Start Last Admin Trade Name Harish PRN Reason Stop Dose Admin Diltiazem HCl 20 mg 04/10/18 23:46 04/10/18 23:55 Cardizem Iv 50 Mg/10 Ml IV 04/10/18 23:47 20 mg STAT ONE Administration Diltiazem HCl Confirm 04/10/18 23:49 Cardizem Iv 50 Mg/10 Ml Administered 04/10/18 23:50 Dose 50 mg IV .STK-MED ONE Lab/Rad Data: Laboratory Result Diagrams 04/10/18 23:45 04/10/18 23:45 Laboratory Results 04/10/18 04/10/18 04/10/18 Range/Units 23:45 23:45 23:45 WBC 9.7 (4.0-10.5) K/mm3 RBC 5.22 (4.1-5.6) M/mm3 Hgb 15.3 (12.5-18.0) gm/dl Hct 43.8 (42-50) % MCV 83.9 (78-100) fl MCH 29.3 (26-32) pg MCHC 34.9 (32-36) g/dl RDW 13.4 (11.5-14.0) % Plt Count 285 (150-450) K/mm3 MPV 10.1 H (6-9.5) fl Gran % 58.3 (36.0-66.0) % Eos # (Auto) 0.07 (0-0.5) Absolute Lymphs (auto) 3.03 (1.0-4.6) Absolute Monos (auto) 0.90 (0.0-1.3) Lymphocytes % 31.3 (24.0-44.0) % Monocytes % 9.3 (0.0-12.0) % Eosinophils % 0.7 (0.00-5.0) % Basophils % 0.4 (0.0-0.4) % Absolute Granulocytes 5.63 (1.4-6.9) Basophils # 0.04 (0-0.4) Sodium 135 L (137-145) mmol/L Potassium 3.6 (3.5-5.1) mmol/L Chloride 98 (98-107) mmol/L Carbon Dioxide 22 (22-30) mmol/L Anion Gap 17.7 H (5-15) MEQ/L BUN 17 (9-20) mg/dL Creatinine 1.03 (0.66-1.25) mg/dL Estimated GFR > 60.0 ML/MIN Glucose 141 H (74-106) mg/dL Calcium 9.2 (8.4-10.2) mg/dL Total Bilirubin 0.70 (0.2-1.3) mg/dL AST 38 (17-59) U/L ALT 27 (0-50) U/L Alkaline Phosphatase 79 (38-126) U/L Troponin I < 0.012 (0.000-0.034) ng/mL NT-Pro-B Natriuret Pep 165 (0-900) pg/mL Serum Total Protein 8.1 (6.3-8.2) g/dL Albumin 4.7 (3.5-5.0) g/dL - Progress Progress: improved Progress Note: 04/11/18 01:02 ADMINISTERED IV NORMAL SALINE 100ML/HR, CARDIZEM 20MG IV OVER 4 MINUTES, FOLLOWED BY A CARDIZEM INFUSION 10MG/HR 04/11/18 01:25, EKG CONVERSION TO NORMAL SINUS RHYTHM AT 0115 RATE OF [address] Zacarias (DISCUSSED WITH DR ZACARIAS AT 0100 FOR OBSERVATION) - Departure Time of Disposition: 01:15 Departure Disposition: Observation Clinical Impression: ACUTE ATRIAL FIBRILLATION RVR Condition: Stable Critical Care Time: No Referrals: [facility] [Primary Care Provider] -
[2018-04-10 23:56] LABS: BASOPHIL % 0.4 % (0.0-0.4); Basophil (Absolute #) 0.04 (0-0.4); Eosinophil % 0.7 % (0.00-5.0); Eosinophil (Absolute #) 0.07 (0-0.5); Granulocyte Absolute (ANC) 5.63 (1.4-6.9); Granulocytes % 58.3 % (36.0-66.0); Hematocrit 43.8 % (42-50); Hemoglobin 15.3 gm/dl (12.5-18.0); Lymphocyte (Absolute #) 3.03 (1.0-4.6); Lymphocytes % 31.3 % (24.0-44.0); Mean Cell Volume 83.9 fl (78-100); Mean Corpuscular Hemoglobin 29.3 pg (26-32); Mean Corpuscular Hgb Concent. 34.9 g/dl (32-36); Mean Platelet Volume 10.1 fl (6-9.5); Monocytes % 9.3 % (0.0-12.0); Platelet Count 285 K/mm3 (150-450); Red Blood Count 5.22 M/mm3 (4.1-5.6); Red Cell Distribution Width 13.4 % (11.5-14.0); White Blood Count 9.7 K/mm3 (4.0-10.5)
[2018-04-11 00:21] LABS: ALBUMIN 4.7 g/dL (3.5-5.0); ALKALINE PHOSPHATASE 79 U/L (38-126); ANION GAP 17.7 MEQ/L (5-15); BLOOD UREA NITROGEN 17 mg/dL (9-20); CHLORIDE 98 mmol/L (98-107); Calcium 9.2 mg/dL (8.4-10.2); Carbon Dioxide 22 mmol/L (22-30); Creatinine 1 1.03 mg/dL (0.66-1.25); Glucose 141 mg/dL (74-106); NT PRO BNP 165 pg/mL (0-900); Potassium 3.6 mmol/L (3.5-5.1); SGOT/AST 38 U/L (17-59); SGPT/ALT 27 U/L (0-50); SODIUM 135 mmol/L (137-145); Total Protein 8.1 g/dL (6.3-8.2)
[2018-04-11] MEDS ORDERED: TYLENOL 325 MG PO PRN (01:12)
[2018-04-11] MEDS ORDERED: CARDIZEM DRIP 100 MG/100 ML D5W 100 ML IV PRN (01:21)
[2018-04-11] MEDS: Sodium Chloride 0.9% 1000 ML 1,000 ML IV SCH ×2 (01:40→16:15)
[2018-04-11 02:15] LABS: INR 2.01 (0.8-3.0)
--- NOTE | 2018-04-11 08:58 | XRAY ---
Indication: Dyspnea. Comparison: January 19, 2018. Portable chest remains hyperinflated with chronic right costophrenic angle blunting. No focal infiltrate, consolidation, or large effusion. Heart is not enlarged for AP portable technique. Bony thorax intact again with mild degenerative changes. Impression: Stable nonacute hyperinflated chest with chronic features.
[2018-04-11] MEDS ORDERED: KETOTIFEN FUMARATE OP PRN (09:18)
[2018-04-11] MEDS ORDERED: MEDICATION INTERVENTION MC SCH (09:45)
[2018-04-11] MEDS ORDERED: Lopressor 50 MG PO SCH (10:00)
[2018-04-11] MEDS: Lopressor 25MG Tab PO SCH ×2 (11:58→21:12)
[2018-04-11 13:16] LABS: TSH, 3RD Generation 1.26 mIU/L (0.47-4.68)
[2018-04-11] MEDS ORDERED: Coumadin 3 MG PO SCH (14:00)
[2018-04-12 07:27] VITALS: BP 100/63; PULSE 53; O2SAT 98
--- NOTE | 2018-04-12 08:34 | PCM.DS ---
Discharge Summary Date of Admission: 04/11/18 02:40 Admitting Physician: KATI ZACARIAS Consults: Consults on Case 04/11/18 08:43 Cardiology Consult [Notify Insurance Clerk of Admit] ROUTINE Primary Care Provider: [facility] Allergies Allergies Antihistamines - Alkylamine Allergy (Mild, Verified 04/10/18 23:55) Fatigue Hospital Summary - Hospital Course Hospital Course: patient with a history of pulmonary embolism and a fib, was admitted with a fib with rvr, started with palpitations and feeling lightheaded while at work on Thursday. 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 patient has no complaints at the time of discharge , feels well. - Vitals & Intake/Output Vital Signs: Vital Signs Temperature 97.6 F 04/12/18 07:26 Pulse Rate 53 L 04/12/18 07:26 Respiratory Rate 17 04/12/18 07:26 Blood Pressure 100/63 04/12/18 07:26 O2 Sat by Pulse Oximetry 98 04/12/18 07:26 Oxygen-Last Documented O2 Percentage 2 Liters = 28% Intake & Output: Intake & Output 04/09/18 04/10/18 04/11/18 04/12/18 11:59 11:59 11:59 11:59 Intake Total 659 2403 Output Total 400 1725 Balance 259 678 Weight 81.7 kg - Lab Result Diagrams: 04/10/18 23:45 04/10/18 23:45 Lab Results-Last 24 Hrs: Lab Results-Last 24 Hours 04/11/18 04/11/18 04/11/18 Range/Units 05:30 08:56 11:45 Hemoglobin A1c 5.33 (4.5-6.0) % Magnesium (1.6-2.3) mg/dL Troponin I < 0.012 < 0.012 (0.000-0.034) ng/mL TSH 3rd Generation (0.47-4.68) mIU/L 04/11/18 Range/Units 12:15 Hemoglobin A1c (4.5-6.0) % Magnesium 2.0 (1.6-2.3) mg/dL Troponin I (0.000-0.034) ng/mL TSH 3rd Generation 1.260 (0.47-4.68) mIU/L - Radiology Exams Ordered Rad Exams-Entire Visit: Radiology Procedures Category Date Time Status CHEST 1 VIEW (PORTABLE) Stat Exams 04/10/18 23:45 Completed - Procedures and Test Procedures and Tests throughout Hospitalization: Therapy Orders & Screens 04/11/18 07:00 EKG REPEAT IN AM Comment: Discharge Exam General Appearance: no apparent distress, alert Respiratory Exam: normal breath sounds, lungs clear, No respiratory distress Cardiovascular Exam: regular rate/rhythm, normal heart sounds Gastrointestinal/Abdomen Exam: soft, No tenderness, No mass Extremity Exam: normal inspection, normal range of motion Final Diagnosis/Problem List - Final Discharge Diagnosis/Problem (1) Atrial fibrillation with RVR Current Visit: No Status: Acute Assessment & Plan: resolved, INR therapeutic on arrival. will continue with current medication regimen. to see Dr Brizuela in 2 days - Discharge Disposition: Home, Self-Care Condition: Stable Prescriptions: New Metoprolol Tartrate 25 mg [Lopressor 25MG Tab] 25 mg PO BID #60 tab Continue Warfarin Sodium 3 mg [Coumadin 3 MG] 3 mg PO DAILY@1400 Ketotifen Fumarate [Refresh] 0.5 ml OP DAILY PRN PRN PRN Reason: DRY EYES Discontinued Metoprolol Tartrate 50 mg [Lopressor 50 MG] 50 mg PO BID Additional Instructions: patient may cut metoprolol 50mg tabs and take 1/2 tab bid until he sees Dr Brizuela on Thursday Follow up with: CHIQUIS BRIZUELA [CONSULTING PHYSICIAN] - Call for Appointment (Call office first thing Thursday morning and make appt to see Dr Brizuela at [place] either Friday 04/14 OR Friday 04/21 whichever day works better.) LEONOR JESUS MD [ACTIVE STAFF] - 04/22/18 9:15 am
--- NOTE | 2018-04-12 10:15 | HP ---
HISTORY OF PRESENT ILLNESS: This is a 52 year-old patient of Dr. Scales and Dr. Luong who presented to the emergency department around 2200 hours on 04/10/2018. He was feeling fatigued and lightheaded and had an increased pulse. He reports a history of supraventricular tachycardia so we tried using ice water, bearing down and massaging his carotid arteries without any relief. He reports he was at work when this started. He works at the [employer] and was working from 1800 hours on and was very busy. He reports he is in a smoky environment when he works. He told his boss finally at 2200 hours that he needed to sit down and someone there who had medical background checked his pulse and told him that it is very high so he came to the emergency department for further evaluation and treatment. He reports that in 2018, he had supraventricular tachycardia. He reports he started having trouble with atrial fibrillation in 2011. He follows with Dr. Luong and reports he had echocardiogram in 2018 with him. He reports having a history of low blood pressure on digoxin. He states his heart rate usually runs in the 70's and blood pressure 110/75 to 80. REVIEW OF SYSTEMS: He denies any chest pain. No nausea or vomiting. No cough. He has had some rhinorrhea, some sinus problems. No abdominal pain. No lower extremity edema. PAST MEDICAL HISTORY: Atrial fibrillation, paroxysmal hyperlipidemia, history of pulmonary embolism in 2011, ankylosing spondylitis, hepatitis B in 1992 that is not active now. PAST SURGICAL HISTORY: Heart cath 2017. Surgery for detached retina. Dental surgery. MEDICATIONS: Please see the medication reconciliation form which I have reviewed. ALLERGIES: ANTIHISTAMINES. SOCIAL HISTORY: He quit smoking 2 years ago. He reports he quit drinking alcohol 1,015 days ago. He lives with his parents. FAMILY HISTORY: His mother is living and has hypertension and hyperlipidemia. His father is living has had a stroke and has hypertension. PHYSICAL EXAMINATION: VITAL SIGNS: Temperature current 97.5F, temperature max 98.3F, heart rate 55 to 165 currently 55, respiratory rate 16 to 24 currently 16, blood pressure 88 to 111 over 62 to 89, weight 81.7 kg. Oxygen saturation 98% on room air. GENERAL: The patient is lying in bed a pleasant talkative man in no acute distress. CVS: He has a regular rate and rhythm. No murmurs, gallops or rubs are appreciated. CHEST: Clear to auscultation bilaterally. No crackles or wheezes. ABDOMEN: Soft. EXTREMITIES: No clubbing, cyanosis or edema. SKIN: Warm, dry and intact. LABORATORY DATA AND TESTS: His white blood cell count was normal. Hemoglobin and PLT count normal. International normalized ratio 2.01. Sodium 135, glucose 141. He had two negative troponins. EKG with sinus bradycardia with heart rate 56, no ST or T-wave changes. Chest x-ray with no formal report from the radiologist yet. ASSESSMENT AND PLAN: 1) PAROXYSMAL ATRIAL FIBRILLATION: He was given Cardizem bolus and placed on Cardizem drip in the emergency room however converted to sinus rhythm shortly after I had called for his admission. He has been off the Cardizem drip since being in the ICU. He usually takes metoprolol at home and we have reordered this. He reports he had taken his metoprolol last night. Will contact his carriage feeder or covering carriage feeder to see if they want to make any changes and when they would like to see him back. He is currently anticoagulated on Coumadin with therapeutic level, will continue with his Coumadin. 2) HYPERLIPIDEMIA: The patient reports that he is to have this checked again with either his primary care doctor or carriage feeder. 3) ANKYLOSING SPONDYLITIS: He reports he takes Tylenol as needed for this.
[2018-04-12] MEDS: Lopressor 25MG Tab PO SCH (10:35)
== END 2018-04-12 11:05 | disposition home or self-care (01) ==
LOC: ED 23:39 → ICU 04-11 02:40 → MED SURG 04-11 12:39
PROVIDERS: ADMIT Internal Medicine; ATTEND Internal Medicine
DX: I48.91 Unspecified atrial fibrillation (principal); Z86.711 Personal history of pulmonary embolism
CPT/HCPCS: 36000; 36415; 71045; 80053; 83036; 83735; 83880; 84443; 84484; 85025; 85610; 93005; 93041; 93268; 94760; 96374; 99285; G0378; A9270-GY

== ENCOUNTER 2018-07-24 14:54 | Emergency (ER) | payer OTHER ==
[2018-07-24] MEDS ORDERED: Cardizem IV 50 MG/10 ML IV ONE ×2 (15:01→15:05)
--- NOTE | 2018-07-24 15:01 | ERPHSYRPT ---
- History of Present Illness Time Seen by Provider: 07/24/18 15:01 Source: patient, family Exam Limitations: no limitations Physician History: 52 y/o white male with h/o atrial fibrillation on flecanide, xarelto and lopressor presents with tachycardia. no sig cp but mild soa. pt woke up this am feeling well. pt had a cardiac cath 2 days ago. pt has a cardiac ablation scheduled September 16, 2018. 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 antoine at [facility]. Timing/Duration: today Activities at Onset: none Quality: tightness Location: substernal Chest Pain Radiation: no radiation Severity of Pain-Max: mild Severity of Pain-Current: mild Nitro Today/Relief: no nitro taken today Aspirin Treatment Today: no aspirin today Associated Symptoms: shortness of breath (mild) Prior Chest Pain/Cardiac Workup: cardiac cath, recently seen/treated Allergies/Adverse Reactions: Antihistamines - Alkylamine Allergy (Mild, Verified 04/10/18 23:55) Fatigue Home Medications: Ketotifen Fumarate [Refresh] 0.5 ml OP DAILY PRN PRN 03/11/18 [History] Ezetimibe 10 mg [Zetia 10 MG] 10 mg PO HS 06/10/18 [History] Metoprolol Tartrate 50 mg [Lopressor 50 MG] 50 mg PO BID 06/10/18 [History ] Flecainide Acetate 100 mg PO BID 07/24/18 [History] Rivaroxaban [Xarelto] 20 mg PO DAILY 07/24/18 [History] Hx Tetanus, Diphtheria Vaccination/Date Given: No (UNKNOWN) Hx Influenza Vaccination/Date Given: Yes Hx Pneumococcal Vaccination/Date Given: No - Review of Systems Constitutional: No Symptoms Eyes: No Symptoms Ears, Nose, & Throat: No Symptoms Respiratory: Dyspnea (mild) Cardiac: Palpitations Abdominal/Gastrointestinal: No Symptoms Genitourinary Symptoms: No Symptoms Musculoskeletal: No Symptoms Skin: No Symptoms Neurological: No Symptoms Psychological: No Symptoms Endocrine: No Symptoms Hematologic/Lymphatic: No Symptoms Immunological/Allergic: No Symptoms All Other Systems: Reviewed and Negative - Past Medical History Pertinent Past Medical History: Yes Neurological History: No Pertinent History ENT History: Cataracts, Other (DETACHED RETINA MANY YEARS AGO) Cardiac History: High Cholesterol Respiratory History: Pneumonia, Pulmonary Embolism Endocrine Medical History: No Pertinent History Musculoskeletal History: Rheumatoid Arthritis GI Medical History: Hepatitis History: No Pertinent History Psycho-Social History: Panic Disorder Male Reproductive Disorders: No Pertinent History Other Medical History: PE 11-05-11 History Afib. Heb B back in 1992, Ankylosing Spondylitis Form of RA. Last time treated for Panic Disorder 2011 - Past Surgical History Past Surgical History: Yes Neuro Surgical History: No Pertinent History Cardiac: Cardiac Catheterization Respiratory: No Pertinent History Gastrointestinal: No Pertinent History Genitourinary: No Pertinent History Musculoskeletal: No Pertinent History Male Surgical History: No Pertinent History Other Surgical History: Dental surgery - Social History Smoking Status: Former smoker Exposure to second hand smoke: Yes Drug Use: none Patient Lives Alone: No - Nursing Vital Signs Nursing Vital Signs: Initial Vital Signs Temperature 98.4 F 07/24/18 14:55 Pulse Rate 92 H 07/24/18 14:55 Respiratory Rate 20 07/24/18 14:55 Blood Pressure 103/90 07/24/18 14:55 O2 Sat by Pulse Oximetry 99 07/24/18 14:55 Pain Scale Pain Intensity 0 - Physical Exam General Appearance: mild distress, alert, anxiety Eye Exam: PERRL/EOMI Ears, Nose, Throat Exam: normal ENT inspection, moist mucous membranes Neck Exam: normal inspection, non-tender, supple, full range of motion Respiratory Exam: normal breath sounds, lungs clear, airway intact, No chest tenderness, No respiratory distress Cardiovascular Exam: tachycardia Gastrointestinal/Abdomen Exam: soft, normal bowel sounds, No tenderness, No guarding Rectal Exam: not done Back Exam: normal inspection, normal range of motion, No CVA tenderness, No vertebral tenderness Extremity Exam: normal inspection, normal range of motion, pelvis stable Neurologic Exam: alert, oriented x 3, cooperative, direct support professional II-XII nml as tested Skin Exam: normal color, warm, dry Lymphatic Exam: No adenopathy SpO2 Interpretation: normal O2 Delivery: Room Air - Course Nursing assessment & vital signs reviewed: Yes EKG Interpreted by Me: RATE, Left Prole Deviation, Right Bundle Branch Block, Other (escape-rhythm. comparison ekg dated 04/11/18 hr 56, nl axis, nsr) Ordered Tests: Active Orders 24 hr Category Date Time Status EKG-ER Only STAT Care 07/24/18 15:01 Active IV Insertion STAT Care 07/24/18 15:01 Active CHEST 1 VIEW (PORTABLE) Stat Exams 07/24/18 15:02 Taken CBC W DIFF Stat Lab 07/24/18 15:00 Completed CMP Stat Lab 07/24/18 15:00 Completed D-DIMER QUANTITATION Stat Lab 07/24/18 15:00 Completed NT PRO BNP Stat Lab 07/24/18 15:00 Completed TROPONIN Q3H Lab 07/24/18 15:00 Completed TROPONIN Q3H Lab 07/24/18 18:15 Ordered TROPONIN Q3H Lab 07/24/18 21:15 Ordered TROPONIN Q3H Lab 07/25/18 00:15 Ordered TROPONIN Q3H Lab 07/25/18 03:15 Ordered Medication Summary Generic Name Dose Route Start Last Admin Trade Name Freq PRN Reason Stop Dose Admin Sodium Chloride 1,000 mls @ 100 mls/hr 07/24/18 15:15 07/24/18 15:17 Sodium Chloride 0.9% 1000 Ml IV 08/23/18 15:14 100 mls/hr .Q10H RALPH Administration Diltiazem HCl 100 mls @ 5 mls/hr 07/24/18 15:22 07/24/18 16:09 Cardizem Drip 100 Mg/100 Ml D5w IV 08/23/18 15:21 5 mg/hr .Q20H PRN 5 mls/hr HEART RATE/ A-FIB Administration Protocol 5 MG/HR Discontinued Medications Generic Name Dose Route Start Last Admin Trade Name Freq PRN Reason Stop Dose Admin Diltiazem HCl 25 mg 07/24/18 15:01 07/24/18 15:08 Cardizem Iv 50 Mg/10 Ml IV 07/24/18 15:02 25 mg STAT ONE Administration Diltiazem HCl Confirm 07/24/18 15:05 Cardizem Iv 50 Mg/10 Ml Administered 07/24/18 15:06 Dose 50 mg IV .STK-MED ONE Lab/Rad Data: Laboratory Result Diagrams 07/24/18 15:00 07/24/18 15:00 Laboratory Results 07/24/18 07/24/18 07/24/18 Range/Units 15:00 15:00 15:00 WBC (4.0-10.5) K/mm3 RBC (4.1-5.6) M/mm3 Hgb (12.5-18.0) gm/dl Hct (42-50) % MCV (78-100) fl MCH (26-32) pg MCHC (32-36) g/dl RDW (11.5-14.0) % Plt Count (150-450) K/mm3 MPV (6-9.5) fl Gran % (36.0-66.0) % Eos # (Auto) (0-0.5) Absolute Lymphs (auto) (1.0-4.6) Absolute Monos (auto) (0.0-1.3) Lymphocytes % (24.0-44.0) % Monocytes % (0.0-12.0) % Eosinophils % (0.00-5.0) % Basophils % (0.0-0.4) % Absolute Granulocytes (1.4-6.9) Basophils # (0-0.4) D-Dimer < 215 L (215-500) ng/mL Sodium 137 (137-145) mmol/L Potassium 3.6 (3.5-5.1) mmol/L Chloride 99 (98-107) mmol/L Carbon Dioxide 26 (22-30) mmol/L Anion Gap 15.2 H (5-15) MEQ/L BUN 13 (9-20) mg/dL Creatinine 1.26 H (0.66-1.25) mg/dL Estimated GFR > 60.0 ML/MIN Glucose 136 H (74-106) mg/dL Calcium 9.6 (8.4-10.2) mg/dL Total Bilirubin 0.60 (0.2-1.3) mg/dL AST 40 (17-59) U/L ALT 29 (0-50) U/L Alkaline Phosphatase 74 (38-126) U/L Troponin I < 0.012 (0.000-0.034) ng/mL NT-Pro-B Natriuret Pep 320 (0-900) pg/mL Serum Total Protein 8.0 (6.3-8.2) g/dL Albumin 4.5 (3.5-5.0) g/dL 07/24/18 Range/Units 15:00 WBC 11.1 H (4.0-10.5) K/mm3 RBC 5.26 (4.1-5.6) M/mm3 Hgb 15.5 (12.5-18.0) gm/dl Hct 44.8 (42-50) % MCV 85.2 (78-100) fl MCH 29.5 (26-32) pg MCHC 34.6 (32-36) g/dl RDW 13.7 (11.5-14.0) % Plt Count 281 (150-450) K/mm3 MPV 10.3 H (6-9.5) fl Gran % 60.0 (36.0-66.0) % Eos # (Auto) 0.11 (0-0.5) Absolute Lymphs (auto) 3.12 (1.0-4.6) Absolute Monos (auto) 1.17 (0.0-1.3) Lymphocytes % 28.1 (24.0-44.0) % Monocytes % 10.6 (0.0-12.0) % Eosinophils % 1.0 (0.00-5.0) % Basophils % 0.3 (0.0-0.4) % Absolute Granulocytes 6.66 (1.4-6.9) Basophils # 0.03 (0-0.4) D-Dimer (215-500) ng/mL Sodium (137-145) mmol/L Potassium (3.5-5.1) mmol/L Chloride (98-107) mmol/L Carbon Dioxide (22-30) mmol/L Anion Gap (5-15) MEQ/L BUN (9-20) mg/dL Creatinine (0.66-1.25) mg/dL Estimated GFR ML/MIN Glucose (74-106) mg/dL Calcium (8.4-10.2) mg/dL Total Bilirubin (0.2-1.3) mg/dL AST (17-59) U/L ALT (0-50) U/L Alkaline Phosphatase (38-126) U/L Troponin I (0.000-0.034) ng/mL NT-Pro-B Natriuret Pep (0-900) pg/mL Serum Total Protein (6.3-8.2) g/dL Albumin (3.5-5.0) g/dL - Progress Progress: improved, re-examined Air Movement: good Progress Note: 07/24/18 15:58 ekg post 25mg iv cardizem 1510 hr 96 left axis deviation, nsr incomplete rbbb left ant fascicular block. cxr-no acute process 07/24/18 16:[address] gilbert, collection systems foreman at [facility] covering for dr. antoine. i reviewed pt hx, condition, lab, and ekg results with dr. gilbert. we offered outpt option to pt versus transfer to [facility]. he wants transfer. dr. gilbert accepts and states to continue cardizem drip. Blood Culture(s) Obtained: No Antibiotics given: No Counseled pt/family regarding: lab results, diagnosis, need for follow-up, rad results - Departure Departure Disposition: Transfer Clinical Impression: Atrial fibrillation with rapid ventricular response Condition: Stable Critical Care Time: Yes Critical Care Time(excluding separately billable procedures): 30-74 minutes Referrals: [facility] [LOCATION] -
[2018-07-24] MEDS ORDERED: Sodium Chloride 0.9% 1000 ML 1,000 ML ONE (15:05)
[2018-07-24 15:10] LABS: BASOPHIL % 0.3 % (0.0-0.4); Basophil (Absolute #) 0.03 (0-0.4); Eosinophil (Absolute #) 0.11 (0-0.5); Granulocyte Absolute (ANC) 6.66 (1.4-6.9); Hematocrit 44.8 % (42-50); Hemoglobin 15.5 gm/dl (12.5-18.0); Lymphocyte (Absolute #) 3.12 (1.0-4.6); Lymphocytes % 28.1 % (24.0-44.0); Mean Cell Volume 85.2 fl (78-100); Mean Corpuscular Hemoglobin 29.5 pg (26-32); Mean Corpuscular Hgb Concent. 34.6 g/dl (32-36); Mean Platelet Volume 10.3 fl (6-9.5); Monocyte (Absolute #) 1.17 (0.0-1.3); Monocytes % 10.6 % (0.0-12.0); Platelet Count 281 K/mm3 (150-450); Red Blood Count 5.26 M/mm3 (4.1-5.6); Red Cell Distribution Width 13.7 % (11.5-14.0); White Blood Count 11.1 K/mm3 (4.0-10.5)
[2018-07-24] MEDS ORDERED: Sodium Chloride 0.9% 1000 ML 1,000 ML IV SCH (15:15)
[2018-07-24] MEDS ORDERED: CARDIZEM DRIP 100 MG/100 ML D5W 100 ML IV PRN (15:22)
[2018-07-24 15:33] LABS: ALBUMIN 4.5 g/dL (3.5-5.0); ALKALINE PHOSPHATASE 74 U/L (38-126); ANION GAP 15.2 MEQ/L (5-15); BLOOD UREA NITROGEN 13 mg/dL (9-20); CHLORIDE 99 mmol/L (98-107); Calcium 9.6 mg/dL (8.4-10.2); Carbon Dioxide 26 mmol/L (22-30); Creatinine 1 1.26 mg/dL (0.66-1.25); Glucose 136 mg/dL (74-106); NT PRO BNP 320 pg/mL (0-900); Potassium 3.6 mmol/L (3.5-5.1); SGOT/AST 40 U/L (17-59); SGPT/ALT 29 U/L (0-50); SODIUM 137 mmol/L (137-145)
[2018-07-24] MEDS ORDERED: CARDIZEM DRIP 100 MG/100 ML D5W 100 ML IV ONE (15:59)
[2018-07-24 16:52] VITALS: PULSE 110
[2018-07-24 17:15] VITALS: BP 105/83; O2SAT 98
--- NOTE | 2018-07-24 21:40 | XRAY ---
Indication: Short of breath. Comparison: April 10, 2018. Portable chest again hyperinflated with chronic right costophrenic angle blunting. No focal infiltrate, consolidation, or large effusion. Heart and mediastinal structures within normal limits. Bony thorax intact again with mild degenerative changes. Impression: Stable nonacute hyperinflated chest with chronic features.
== END 2018-07-24 17:52 | disposition short-term general hospital (02) ==
LOC: ED 14:54
DX: I48.91 Unspecified atrial fibrillation (principal); Z79.01 Long term (current) use of anticoagulants
CPT/HCPCS: 36000; 36415; 71045; 80053; 83880; 84484; 85025; 85379; 93005; 96360; 96361; 96374; 96375; 99285

== ENCOUNTER 2018-08-01 01:30 | Emergency (ER) | payer OTHER ==
[2018-08-01] MEDS ORDERED: Cardizem IV 50 MG/10 ML IV ONE ×2 (01:43→01:50)
--- NOTE | 2018-08-01 01:45 | ERPHSYRPT ---
- History of Present Illness Time Seen by Provider: 08/01/18 01:40 Source: patient Exam Limitations: no limitations Physician History: 52 y/o white male known to me and this ED. pt has h/o atrial fibrillation and takes metoprolol and flecainide for it. pt suddenly had a mild pressure in his chest followed by rapid hr in the 170s bpm at home. pt also has mild lightheadedness. no other sx. pt seen for same issue here by me on 07/24/18. in the interim pt seen by church history teacher dr. gilbert. pt has appt. with his church history teacher on ThuAugust 04. Cardiac ablation scheduled for September 2018. pt states even at home, he is running low bp because of new medication dosing and is keeping a log. Timing/Duration: today Activities at Onset: none Location: substernal Chest Pain Radiation: no radiation Severity of Pain-Max: mild Severity of Pain-Current: none Modifying Factors: Improves With: nothing Nitro Today/Relief: no nitro taken today Aspirin Treatment Today: no aspirin today Associated Symptoms: other (mild lightheadedness) Allergies/Adverse Reactions: Antihistamines - Alkylamine Allergy (Mild, Verified 08/01/18 01:51) Fatigue Home Medications: Ketotifen Fumarate [Refresh] 0.5 ml OP DAILY PRN PRN 03/11/18 [History] Ezetimibe 10 mg [Zetia 10 MG] 10 mg PO HS 06/10/18 [History] Metoprolol Tartrate 50 mg [Lopressor 50 MG] 75 mg PO BID 06/10/18 [History ] Flecainide Acetate 100 mg PO BID 07/24/18 [History] Rivaroxaban [Xarelto] 20 mg PO DAILY 07/24/18 [History] Hx Tetanus, Diphtheria Vaccination/Date Given: No (UNKNOWN) Hx Influenza Vaccination/Date Given: Yes Hx Pneumococcal Vaccination/Date Given: No - Review of Systems Constitutional: No Symptoms Eyes: No Symptoms Ears, Nose, & Throat: No Symptoms Respiratory: No Symptoms Cardiac: Palpitations Abdominal/Gastrointestinal: No Symptoms Genitourinary Symptoms: No Symptoms Musculoskeletal: No Symptoms Skin: No Symptoms Neurological: No Symptoms Psychological: No Symptoms Endocrine: No Symptoms Hematologic/Lymphatic: No Symptoms Immunological/Allergic: No Symptoms All Other Systems: Reviewed and Negative - Past Medical History Pertinent Past Medical History: Yes Neurological History: No Pertinent History ENT History: Cataracts, Other (DETACHED RETINA MANY YEARS AGO) Cardiac History: High Cholesterol Respiratory History: Pneumonia, Pulmonary Embolism Endocrine Medical History: No Pertinent History Musculoskeletal History: Rheumatoid Arthritis GI Medical History: Hepatitis History: No Pertinent History Psycho-Social History: Panic Disorder Male Reproductive Disorders: No Pertinent History Other Medical History: PE 11-05-11 History Afib. Heb B back in 1992, Ankylosing Spondylitis Form of RA. Last time treated for Panic Disorder 2011 - Past Surgical History Past Surgical History: Yes Neuro Surgical History: No Pertinent History Cardiac: Cardiac Catheterization Respiratory: No Pertinent History Gastrointestinal: No Pertinent History Genitourinary: No Pertinent History Musculoskeletal: No Pertinent History Male Surgical History: No Pertinent History Other Surgical History: Dental surgery - Social History Smoking Status: Former smoker Exposure to second hand smoke: Yes Drug Use: none Patient Lives Alone: No - Nursing Vital Signs Nursing Vital Signs: Initial Vital Signs Pulse Rate 170 H 08/01/18 01:39 Respiratory Rate 17 08/01/18 01:39 Blood Pressure 105/77 08/01/18 01:39 O2 Sat by Pulse Oximetry 98 08/01/18 01:39 Pain Scale Pain Intensity 1 - Physical Exam General Appearance: mild distress, alert, anxiety Eye Exam: PERRL/EOMI Ears, Nose, Throat Exam: normal ENT inspection Neck Exam: normal inspection, non-tender, supple, full range of motion Respiratory Exam: normal breath sounds, lungs clear, airway intact, No chest tenderness, No respiratory distress Cardiovascular Exam: regular rate/rhythm, normal heart sounds, normal peripheral pulses Gastrointestinal/Abdomen Exam: soft, normal bowel sounds, No tenderness, No guarding Back Exam: normal inspection, normal range of motion, No CVA tenderness, No vertebral tenderness Extremity Exam: normal inspection, normal range of motion, pelvis stable Neurologic Exam: alert, oriented x 3, cooperative, mail clerks supervisor II-XII nml as tested, normal mood/affect, nml cerebellar function, nml station & gait, sensation nml Skin Exam: normal color, warm, dry Lymphatic Exam: adenopathy SpO2 Interpretation: normal O2 Delivery: Room Air - Course Nursing assessment & vital signs reviewed: Yes EKG Interpreted by Me: RATE (169), A-fib, Right Bundle Branch Block, Other ( indeterminate axis. comparison ekg. 07/24/18 after cardizem. new complete rbbb, left ant fascicular block resolved. ) Ordered Tests: Active Orders 24 hr Category Date Time Status EKG-ER Only STAT Care 08/01/18 01:50 Active EKG-ER Only STAT Care 08/01/18 01:51 Active IV Insertion STAT Care 08/01/18 01:50 Active Pulse Oximetry (ED) STAT Care 08/01/18 01:50 Active CBC W DIFF Stat Lab 08/01/18 01:50 Completed CMP Stat Lab 08/01/18 02:29 Completed NT PRO BNP Stat Lab 08/01/18 02:29 Completed PROTIME WITH INR Stat Lab 08/01/18 02:29 Completed TROPONIN Q3H Lab 08/01/18 02:29 Completed TROPONIN Q3H Lab 08/01/18 05:00 Ordered TROPONIN Q3H Lab 08/01/18 08:00 Ordered TROPONIN Q3H Lab 08/01/18 11:00 Ordered TROPONIN Q3H Lab 08/01/18 14:00 Ordered Medication Summary Generic Name Dose Route Start Last Admin Trade Name Freq PRN Reason Stop Dose Admin Sodium Chloride 1,000 mls @ 100 mls/hr 08/01/18 02:00 08/01/18 02:40 Sodium Chloride 0.9% 1000 Ml IV 08/31/18 01:59 100 mls/hr .Q10H RALPH Administration Discontinued Medications Generic Name Dose Route Start Last Admin Trade Name Freq PRN Reason Stop Dose Admin Diltiazem HCl Confirm 08/01/18 01:43 Cardizem Iv 50 Mg/10 Ml Administered 08/01/18 01:44 Dose 50 mg IV .STK-MED ONE Diltiazem HCl 25 mg 08/01/18 01:50 08/01/18 01:41 Cardizem Iv 50 Mg/10 Ml IV 08/01/18 01:51 25 mg STAT ONE Administration Sodium Chloride Confirm 08/01/18 01:48 Sodium Chloride 0.9% 1000 Ml Administered 08/01/18 01:49 Dose 1,000 mls @ ud .ROUTE .STK-MED ONE Sodium Chloride 500 mls @ 500 mls/hr 08/01/18 01:51 08/01/18 01:41 Sodium Chloride 0.9% 500 Ml IV 08/01/18 02:50 500 mls/hr .Q1H ONE Administration Lab/Rad Data: Laboratory Result Diagrams 08/01/18 01:50 08/01/18 02:29 Laboratory Results 08/01/18 08/01/18 08/01/18 Range/Units 02:29 02:29 02:29 WBC (4.0-10.5) K/mm3 RBC (4.1-5.6) M/mm3 Hgb (12.5-18.0) gm/dl Hct (42-50) % MCV (78-100) fl MCH (26-32) pg MCHC (32-36) g/dl RDW (11.5-14.0) % Plt Count (150-450) K/mm3 MPV (6-9.5) fl Gran % (36.0-66.0) % Eos # (Auto) (0-0.5) Absolute Lymphs (auto) (1.0-4.6) Absolute Monos (auto) (0.0-1.3) Lymphocytes % (24.0-44.0) % Monocytes % (0.0-12.0) % Eosinophils % (0.00-5.0) % Basophils % (0.0-0.4) % Absolute Granulocytes (1.4-6.9) Basophils # (0-0.4) PT 29.4 H (8.83-12.87) SECONDS INR 2.50 (0.8-3.0) Sodium 136 L (137-145) mmol/L Potassium 3.9 (3.5-5.1) mmol/L Chloride 99 (98-107) mmol/L Carbon Dioxide 26 (22-30) mmol/L Anion Gap 15.4 H (5-15) MEQ/L BUN 17 (9-20) mg/dL Creatinine 1.28 H (0.66-1.25) mg/dL Estimated GFR > 60.0 ML/MIN Glucose 142 H (74-106) mg/dL Calcium 9.5 (8.4-10.2) mg/dL Total Bilirubin 0.40 (0.2-1.3) mg/dL AST 87 H (17-59) U/L ALT 60 H (0-50) U/L Alkaline Phosphatase 83 (38-126) U/L Troponin I < 0.012 (0.000-0.034) ng/mL NT-Pro-B Natriuret Pep 733 (0-900) pg/mL Serum Total Protein 7.5 (6.3-8.2) g/dL Albumin 4.3 (3.5-5.0) g/dL 08/01/18 Range/Units 01:50 WBC 12.3 H (4.0-10.5) K/mm3 RBC 5.05 (4.1-5.6) M/mm3 Hgb 14.8 (12.5-18.0) gm/dl Hct 43.1 (42-50) % MCV 85.3 (78-100) fl MCH 29.3 (26-32) pg MCHC 34.3 (32-36) g/dl RDW 13.8 (11.5-14.0) % Plt Count 306 (150-450) K/mm3 MPV 10.5 H (6-9.5) fl Gran % 64.0 (36.0-66.0) % Eos # (Auto) 0.16 (0-0.5) Absolute Lymphs (auto) 3.33 (1.0-4.6) Absolute Monos (auto) 0.93 (0.0-1.3) Lymphocytes % 27.0 (24.0-44.0) % Monocytes % 7.5 (0.0-12.0) % Eosinophils % 1.3 (0.00-5.0) % Basophils % 0.2 (0.0-0.4) % Absolute Granulocytes 7.88 H (1.4-6.9) Basophils # 0.03 (0-0.4) PT (8.83-12.87) SECONDS INR (0.8-3.0) Sodium (137-145) mmol/L Potassium (3.5-5.1) mmol/L Chloride (98-107) mmol/L Carbon Dioxide (22-30) mmol/L Anion Gap (5-15) MEQ/L BUN (9-20) mg/dL Creatinine (0.66-1.25) mg/dL Estimated GFR ML/MIN Glucose (74-106) mg/dL Calcium (8.4-10.2) mg/dL Total Bilirubin (0.2-1.3) mg/dL AST (17-59) U/L ALT (0-50) U/L Alkaline Phosphatase (38-126) U/L Troponin I (0.000-0.034) ng/mL NT-Pro-B Natriuret Pep (0-900) pg/mL Serum Total Protein (6.3-8.2) g/dL Albumin (3.5-5.0) g/dL - Progress Progress: improved, re-examined Air Movement: good Progress Note: 08/01/18 01:59 repeat ekg post 25mg iv cardizem at 0156 on 08/01/18 hr 97 left axis deviation, atrial escape rhythm, persistent complete rbbb, right ventricular hypertrophy and recurrent left ant fasicular block 08/01/18 03:24 pt states he is doing better. at home pts hr 50's and sbp in 100-110's. pt would like to be discharged if he is in those ranges. i think this is reasonable. Blood Culture(s) Obtained: No Antibiotics given: No Counseled pt/family regarding: lab results, diagnosis, need for follow-up - Departure Departure Disposition: Home Clinical Impression: Chronic atrial fibrillation with rapid ventricular response Condition: Stable Critical Care Time: Yes Critical Care Time(excluding separately billable procedures): 30-74 minutes Referrals: CODY MANCIA [Primary Care Provider] - Additional Instructions: at 0900 take your heart rate and blood pressure then call church history teacher to discuss your medications before you take your next metoprolol.
[2018-08-01] MEDS ORDERED: Sodium Chloride 0.9% 1000 ML 1,000 ML ONE (01:48)
[2018-08-01] MEDS ORDERED: Sodium Chloride 0.9% 500 ML 500 ML IV ONE (01:51)
[2018-08-01] MEDS ORDERED: Sodium Chloride 0.9% 1000 ML 1,000 ML IV SCH (02:00)
[2018-08-01 02:11] LABS: BASOPHIL % 0.2 % (0.0-0.4); Basophil (Absolute #) 0.03 (0-0.4); Eosinophil % 1.3 % (0.00-5.0); Eosinophil (Absolute #) 0.16 (0-0.5); Granulocyte Absolute (ANC) 7.88 (1.4-6.9); Hematocrit 43.1 % (42-50); Hemoglobin 14.8 gm/dl (12.5-18.0); Lymphocyte (Absolute #) 3.33 (1.0-4.6); Mean Cell Volume 85.3 fl (78-100); Mean Corpuscular Hemoglobin 29.3 pg (26-32); Mean Corpuscular Hgb Concent. 34.3 g/dl (32-36); Mean Platelet Volume 10.5 fl (6-9.5); Monocyte (Absolute #) 0.93 (0.0-1.3); Monocytes % 7.5 % (0.0-12.0); Platelet Count 306 K/mm3 (150-450); Red Blood Count 5.05 M/mm3 (4.1-5.6); Red Cell Distribution Width 13.8 % (11.5-14.0); White Blood Count 12.3 K/mm3 (4.0-10.5)
[2018-08-01 02:35] LABS: ALBUMIN 4.3 g/dL (3.5-5.0); ALKALINE PHOSPHATASE 83 U/L (38-126); ANION GAP 15.4 MEQ/L (5-15); BLOOD UREA NITROGEN 17 mg/dL (9-20); CHLORIDE 99 mmol/L (98-107); Calcium 9.5 mg/dL (8.4-10.2); Carbon Dioxide 26 mmol/L (22-30); Creatinine 1 1.28 mg/dL (0.66-1.25); Glucose 142 mg/dL (74-106); NT PRO BNP 733 pg/mL (0-900); Potassium 3.9 mmol/L (3.5-5.1); SGOT/AST 87 U/L (17-59); SGPT/ALT 60 U/L (0-50); SODIUM 136 mmol/L (137-145); Total Protein 7.5 g/dL (6.3-8.2)
[2018-08-01 02:36] LABS: INR 2.5 (0.8-3.0); PROTIME 29.4 SECONDS (8.83-12.87)
[2018-08-01 04:10] VITALS: BP 92/62; PULSE 52; O2SAT 98
== END 2018-08-01 04:15 | disposition home or self-care (01) ==
LOC: ED 01:30
DX: I48.2 Chronic atrial fibrillation (principal); Z79.01 Long term (current) use of anticoagulants; Z79.899 Other long term (current) drug therapy; Z86.711 Personal history of pulmonary embolism; M06.9 Rheumatoid arthritis, unspecified; K75.9 Inflammatory liver disease, unspecified
CPT/HCPCS: 36000; 36415; 80053; 83880; 84484; 85025; 85610; 93005; 96360; 96361; 96374; 99284

== ENCOUNTER 2018-08-09 15:51 | Observation (INO) | payer OTHER ==
[2018-08-09] MEDS ORDERED: Adenocard IV 6 MG/2 ML IV ONE (15:59)
[2018-08-09] MEDS ORDERED: Sodium Chloride 0.9% 1000 ML 1,000 ML ONE ×3 (16:00→18:00)
[2018-08-09] MEDS ORDERED: BABY ASPIRIN 81 MG CHEW PO ONE (16:02)
[2018-08-09] MEDS ORDERED: CARDIZEM DRIP 100 MG/100 ML D5W 100 ML IV PRN (16:04)
--- NOTE | 2018-08-09 16:07 | ERPHSYRPT ---
- History of Present Illness Time Seen by Provider: 08/09/18 16:05 Source: patient, family Physician History: mild to mod sudden palpitations today constant since 1pm, no pain, no injury, no syncope, no fever, hx atrial fib Aspirin Treatment Today: 81 mg x 4 Allergies/Adverse Reactions: Antihistamines - Alkylamine Allergy (Mild, Verified 08/01/18 01:51) Fatigue Home Medications: Ketotifen Fumarate [Refresh] 0.5 ml OP DAILY PRN PRN 03/11/18 [History] Ezetimibe 10 mg [Zetia 10 MG] 10 mg PO HS 06/10/18 [History] Metoprolol Tartrate 50 mg [Lopressor 50 MG] 75 mg PO BID 06/10/18 [History ] Flecainide Acetate 100 mg PO BID 07/24/18 [History] Rivaroxaban [Xarelto] 20 mg PO DAILY 07/24/18 [History] Hx Tetanus, Diphtheria Vaccination/Date Given: No (UNKNOWN) Hx Influenza Vaccination/Date Given: Yes Hx Pneumococcal Vaccination/Date Given: No - Review of Systems Constitutional: No Fever Eyes: No Vision Changes Ears, Nose, & Throat: No Nose Congestion Respiratory: No Dyspnea Cardiac: Palpitations, No Chest Pain, No Syncope Abdominal/Gastrointestinal: No Abdominal Pain Genitourinary Symptoms: No Dysuria Musculoskeletal: No Back Pain Neurological: No Dizziness, No Focal Weakness - Past Medical History Pertinent Past Medical History: Yes Neurological History: No Pertinent History ENT History: Cataracts, Other (DETACHED RETINA MANY YEARS AGO) Cardiac History: High Cholesterol Respiratory History: Pneumonia, Pulmonary Embolism Endocrine Medical History: No Pertinent History Musculoskeletal History: Rheumatoid Arthritis GI Medical History: Hepatitis History: No Pertinent History Psycho-Social History: Panic Disorder Male Reproductive Disorders: No Pertinent History Other Medical History: PE 11-05-11 History Afib. Heb B back in 1992, Ankylosing Spondylitis Form of RA. Last time treated for Panic Disorder 2011 - Past Surgical History Past Surgical History: Yes Neuro Surgical History: No Pertinent History Cardiac: Cardiac Catheterization Respiratory: No Pertinent History Gastrointestinal: No Pertinent History Genitourinary: No Pertinent History Musculoskeletal: No Pertinent History Male Surgical History: No Pertinent History Other Surgical History: Dental surgery - Social History Smoking Status: Former smoker Exposure to second hand smoke: Yes Drug Use: none Patient Lives Alone: No - Nursing Vital Signs Nursing Vital Signs: Initial Vital Signs Temperature 98.6 F 08/09/18 15:57 Pulse Rate 170 H 08/09/18 15:57 Respiratory Rate 18 08/09/18 15:57 Blood Pressure 108/82 08/09/18 15:57 O2 Sat by Pulse Oximetry 98 08/09/18 15:57 Pain Scale Pain Intensity 2 - Physical Exam General Appearance: no apparent distress Eye Exam: eyes nml inspection Ears, Nose, Throat Exam: moist mucous membranes Neck Exam: No meningismus Respiratory Exam: No respiratory distress Cardiovascular Exam: tachycardia Gastrointestinal/Abdomen Exam: soft, No tenderness Back Exam: normal range of motion Extremity Exam: normal inspection Neurologic Exam: alert, oriented x 3, cooperative Skin Exam: normal color, warm, dry - Course Nursing assessment & vital signs reviewed: Yes EKG Interpreted by Me: A-fib - Radiology Exams Chest X-ray Interpretation: Discussed w/ radiologist, Negative Ordered Tests: Active Orders 24 hr Category Date Time Status Paste Plant Supervisor STAT Care 08/09/18 16:03 Active EKG-ER Only STAT Care 08/09/18 16:02 Active IV Insertion STAT Care 08/09/18 16:02 Active IV Insertion-2nd Peripheral STAT Care 08/09/18 16:55 Active CHEST 1 VIEW (PORTABLE) Stat Exams 08/09/18 16:02 Completed CBC W DIFF Stat Lab 08/09/18 16:00 Completed CMP Stat Lab 08/09/18 16:00 Completed D-DIMER QUANTITATION Stat Lab 08/09/18 16:00 Completed PROTIME WITH INR Stat Lab 08/09/18 16:00 Completed TROPONIN Q3H Lab 08/09/18 16:15 Completed TROPONIN Q3H Lab 08/09/18 19:15 Ordered TROPONIN Q3H Lab 08/09/18 22:15 Ordered TROPONIN Q3H Lab 08/10/18 01:15 Ordered TROPONIN Q3H Lab 08/10/18 04:15 Ordered Transfer Order Routine Transfer 08/09/18 Ordered Medication Summary Generic Name Dose Route Start Last Admin Trade Name Freq PRN Reason Stop Dose Admin Diltiazem HCl 100 mls @ 5 mls/hr 08/09/18 16:04 08/09/18 16:17 Cardizem Drip 100 Mg/100 Ml D5w IV 09/08/18 16:03 5 mg/hr .Q20H PRN 5 mls/hr HEART RATE/ A-FIB Administration Protocol 5 MG/HR Sodium Chloride 1,000 mls @ 100 mls/hr 08/09/18 16:15 08/09/18 16:16 Sodium Chloride 0.9% 1000 Ml IV 09/08/18 16:14 100 mls/hr .Q10H RALPH Administration Sodium Chloride 1,000 mls @ 999 mls/hr 08/09/18 18:03 08/09/18 18:04 Sodium Chloride 0.9% 1000 Ml IV 08/09/18 19:03 999 mls/hr .Q1H1M STA Administration Discontinued Medications Generic Name Dose Route Start Last Admin Trade Name Tyrelq PRN Reason Stop Dose Admin Adenosine Confirm 08/09/18 15:59 Adenocard Iv 6 Mg/2 Ml Administered 08/09/18 16:00 Dose 6 mg IV .STK-MED ONE Aspirin 324 mg 08/09/18 16:02 08/09/18 16:16 Baby Aspirin 81 Mg Chew PO 08/09/18 16:03 324 mg STAT ONE Administration Aspirin Confirm 08/09/18 16:08 Baby Aspirin 81 Mg Chew Administered 08/09/18 16:09 Dose 324 mg .ROUTE .STK-MED ONE Sodium Chloride Confirm 08/09/18 16:00 Sodium Chloride 0.9% 1000 Ml Administered 08/09/18 16:01 Dose 1,000 mls @ ud .ROUTE .STK-MED ONE Sodium Chloride 1,000 mls @ 999 mls/hr 08/09/18 16:17 08/09/18 17:24 Sodium Chloride 0.9% 1000 Ml IV 08/09/18 17:17 Infused .Q1H1M STA Infusion Lab/Rad Data: Laboratory Result Diagrams 08/09/18 16:00 08/09/18 16:00 Laboratory Results 08/09/18 08/09/18 08/09/18 Range/Units 16:15 16:00 16:00 WBC (4.0-10.5) K/mm3 RBC (4.1-5.6) M/mm3 Hgb (12.5-18.0) gm/dl Hct (42-50) % MCV (78-100) fl MCH (26-32) pg MCHC (32-36) g/dl RDW (11.5-14.0) % Plt Count (150-450) K/mm3 MPV (6-9.5) fl Gran % (36.0-66.0) % Eos # (Auto) (0-0.5) Absolute Lymphs (auto) (1.0-4.6) Absolute Monos (auto) (0.0-1.3) Lymphocytes % (24.0-44.0) % Monocytes % (0.0-12.0) % Eosinophils % (0.00-5.0) % Basophils % (0.0-0.4) % Absolute Granulocytes (1.4-6.9) Basophils # (0-0.4) PT 15.6 H (8.83-12.87) SECONDS INR 1.34 (0.8-3.0) D-Dimer 228 (215-500) ng/mL Sodium 136 L (137-145) mmol/L Potassium 4.1 (3.5-5.1) mmol/L Chloride 98 (98-107) mmol/L Carbon Dioxide 26 (22-30) mmol/L Anion Gap 15.6 H (5-15) MEQ/L BUN 16 (9-20) mg/dL Creatinine 1.19 (0.66-1.25) mg/dL Estimated GFR > 60.0 ML/MIN Glucose 129 H (74-106) mg/dL Calcium 9.7 (8.4-10.2) mg/dL Total Bilirubin 0.40 (0.2-1.3) mg/dL AST 76 H (17-59) U/L ALT 52 H (0-50) U/L Alkaline Phosphatase 92 (38-126) U/L Troponin I < 0.012 (0.000-0.034) ng/mL Serum Total Protein 7.7 (6.3-8.2) g/dL Albumin 4.3 (3.5-5.0) g/dL 08/09/18 Range/Units 16:00 WBC 13.1 H (4.0-10.5) K/mm3 RBC 5.11 (4.1-5.6) M/mm3 Hgb 15.0 (12.5-18.0) gm/dl Hct 43.8 (42-50) % MCV 85.7 (78-100) fl MCH 29.4 (26-32) pg MCHC 34.2 (32-36) g/dl RDW 13.7 (11.5-14.0) % Plt Count 283 (150-450) K/mm3 MPV 10.3 H (6-9.5) fl Gran % 72.3 H (36.0-66.0) % Eos # (Auto) 0.07 (0-0.5) Absolute Lymphs (auto) 2.42 (1.0-4.6) Absolute Monos (auto) 1.13 (0.0-1.3) Lymphocytes % 18.5 L (24.0-44.0) % Monocytes % 8.6 (0.0-12.0) % Eosinophils % 0.5 (0.00-5.0) % Basophils % 0.1 (0.0-0.4) % Absolute Granulocytes 9.45 H (1.4-6.9) Basophils # 0.01 (0-0.4) PT (8.83-12.87) SECONDS INR (0.8-3.0) D-Dimer (215-500) ng/mL Sodium (137-145) mmol/L Potassium (3.5-5.1) mmol/L Chloride (98-107) mmol/L Carbon Dioxide (22-30) mmol/L Anion Gap (5-15) MEQ/L BUN (9-20) mg/dL Creatinine (0.66-1.25) mg/dL Estimated GFR ML/MIN Glucose (74-106) mg/dL Calcium (8.4-10.2) mg/dL Total Bilirubin (0.2-1.3) mg/dL AST (17-59) U/L ALT (0-50) U/L Alkaline Phosphatase (38-126) U/L Troponin I (0.000-0.034) ng/mL Serum Total Protein (6.3-8.2) g/dL Albumin (3.5-5.0) g/dL - Progress Progress: improved Air Movement: good Progress Note: 08/09/18 18:19 consult and treatment d/w Dr Means, admit d/w Dr Jesus, admit ICU, troponin neg , ddimer neg - Departure Departure Disposition: In-patient Admission Clinical Impression: Atrial fibrillation with RVR Condition: Stable Critical Care Time: No Referrals: LEONOR JESUS MD [Primary Care Provider] -
[2018-08-09] MEDS ORDERED: BABY ASPIRIN 81 MG CHEW ONE (16:08)
[2018-08-09] MEDS ORDERED: Sodium Chloride 0.9% 1000 ML 1,000 ML IV SCH ×2 (16:15→19:17)
[2018-08-09] MEDS ORDERED: Sodium Chloride 0.9% 1000 ML 1,000 ML IV STA ×2 (16:17→18:03)
[2018-08-09 16:21] LABS: BASOPHIL % 0.1 % (0.0-0.4); Basophil (Absolute #) 0.01 (0-0.4); Eosinophil % 0.5 % (0.00-5.0); Eosinophil (Absolute #) 0.07 (0-0.5); Granulocyte Absolute (ANC) 9.45 (1.4-6.9); Granulocytes % 72.3 % (36.0-66.0); Hematocrit 43.8 % (42-50); Lymphocyte (Absolute #) 2.42 (1.0-4.6); Lymphocytes % 18.5 % (24.0-44.0); Mean Cell Volume 85.7 fl (78-100); Mean Corpuscular Hemoglobin 29.4 pg (26-32); Mean Corpuscular Hgb Concent. 34.2 g/dl (32-36); Mean Platelet Volume 10.3 fl (6-9.5); Monocyte (Absolute #) 1.13 (0.0-1.3); Monocytes % 8.6 % (0.0-12.0); Platelet Count 283 K/mm3 (150-450); Red Blood Count 5.11 M/mm3 (4.1-5.6); Red Cell Distribution Width 13.7 % (11.5-14.0); White Blood Count 13.1 K/mm3 (4.0-10.5)
--- NOTE | 2018-08-09 16:26 | XRAY ---
Indication: Palpitations. History atrial fibrillation. Comparison: July 24, 2018. Portable chest remains hyperinflated and clear with chronic right costophrenic angle blunting. Heart is not enlarged. No new/acute findings.
[2018-08-09 16:40] LABS: INR 1.34 (0.8-3.0); PROTIME 15.6 SECONDS (8.83-12.87)
[2018-08-09 16:44] LABS: ALBUMIN 4.3 g/dL (3.5-5.0); ALKALINE PHOSPHATASE 92 U/L (38-126); ANION GAP 15.6 MEQ/L (5-15); BLOOD UREA NITROGEN 16 mg/dL (9-20); CHLORIDE 98 mmol/L (98-107); Calcium 9.7 mg/dL (8.4-10.2); Carbon Dioxide 26 mmol/L (22-30); Creatinine 1 1.19 mg/dL (0.66-1.25); Glucose 129 mg/dL (74-106); Potassium 4.1 mmol/L (3.5-5.1); SGOT/AST 76 U/L (17-59); SGPT/ALT 52 U/L (0-50); SODIUM 136 mmol/L (137-145); Total Protein 7.7 g/dL (6.3-8.2)
[2018-08-09] MEDS ORDERED: Sodium Chloride 0.9% 500 ML 500 ML IV ONE (19:54)
[2018-08-09] MEDS ORDERED: Lanoxin 0.5 MG/2 ML INJECTION IV ONE (19:55)
[2018-08-09] MEDS ORDERED: Lanoxin 0.5 MG/2 ML INJECTION ONE (20:06)
[2018-08-09 21:01] VITALS: PULSE 179
[2018-08-09 21:44] VITALS: BP 81/63; O2SAT 96
== END 2018-08-09 21:44 | disposition short-term general hospital (02) ==
LOC: ED 15:51 → INTOOBSV 18:59 → ICU 18:59
PROVIDERS: ADMIT Family Medicine; ATTEND Family Medicine
DX: I48.91 Unspecified atrial fibrillation (principal); Z79.899 Other long term (current) drug therapy
CPT/HCPCS: 36000; 36415; 71045; 80053; 84484; 85025; 85379; 85610; 93005; 93041; 96360; 96361; 96365; 96366; 99285; J0153; J1160; A9270-GY

== ENCOUNTER 2024-02-04 05:57 | Day surgery (SDC) | payer OTHER ==
[2024-02-04 06:28] VITALS: RESP 16
[2024-02-04] MEDS ORDERED: Lactated Ringers 1,000 ML IV ONE (06:28)
[2024-02-04] MEDS: Lactated Ringers 1,000 ML IV SCH (06:33)
[2024-02-04] MEDS ORDERED: DIPRIVAN 200 MG/20 ML IV ONE ×2 (07:48→08:23)
[2024-02-04 09:20] VITALS: O2SAT 97
[2024-02-04 09:31] VITALS: BP 108/62; PULSE 62; TEMP 97.4
--- NOTE | 2024-02-05 09:07 | OP ---
SURGERY DATE/TIME: 02/04/2024 [id number] PREOPERATIVE DIAGNOSIS: Positive Cologuard. POSTOPERATIVE DIAGNOSIS: Sigmoid colitis. PROCEDURE: Colonoscopy. SURGEON: Hector Scales MD. ANESTHESIA: MAC by Víctor Gaviria CRNA. ESTIMATED BLOOD LOSS: Minimal. SPECIMENS: There are 2 cold forceps biopsies from the proximal sigmoid colon in the area of colitis. DESCRIPTION OF PROCEDURE AND FINDINGS: After informed written consent was obtained, the patient was taken to the operating room. He was placed in the left lateral decubitus position, then anesthesia was titrated to the desired level of consciousness. Digital rectal exam showed normal sphincter tone and no internal lesions. The scope was inserted into the rectum and sequentially the entire colonic mucosa was traversed. The level of the cecum was reached and verified with direct visualization of the ileocecal valve. Upon withdrawal, careful mucosal inspection revealed no obvious lesions or polyps. Proximal sigmoid colon showed a small isolated area of circumferential colitis which was sampled with 2 cold forceps biopsies with minimal blood loss. The remainder of the exam was within normal limits and prior to withdrawal, retroflexion showed no internal lesions. Scope was removed and patient was transferred to the recovery room in good condition. I have advised that he hold his Xarelto for 5 more days to allow healing from biopsy sites and he will follow up in a week for pathology results.
== END 2024-02-04 09:38 | disposition home or self-care (01) ==
LOC: SDC 05:57
PROVIDERS: ATTEND Family Medicine
DX: K52.9 Noninfective gastroenteritis and colitis, unspecified (principal); R19.5 Other fecal abnormalities
CPT/HCPCS: J2704

== ENCOUNTER 2024-03-20 07:59 | Emergency (ER) | payer OTHER ==
[2024-03-20 08:10] VITALS: TEMP 97.2
--- NOTE | 2024-03-20 08:30 | ERPHSYRPT ---
- History of Present Illness Time Seen by Provider: 03/20/24 08:15 Source: patient Exam Limitations: no limitations Patient Subjective Stated Complaint: Palpitations Triage Nursing Assessment: Patient ambulated back to ED and transferred self to bed. Patient A+O X3. Patient's skin pink, warm and dry. Patient complains of palipations/ chest fluttering since 0400 this am. Patient states he feels like he has indigestion. Patient denies pain or discomfort. Patient does have hx of A-fib. Physician History: Pt states for the past 9 hours he has felt his heart fluttering intermittently and about 75 minutes ago his heart rate was 137; denies fever, chest pain, shortness of air, nausea, vomiting, abdominal pain, diarrhea. Pt states he has a Hx of A.fib for the past 6 years and had a cardiac ablation in 2019. Aspirin Treatment Today: no aspirin today Allergies/Adverse Reactions: Antihistamines - Alkylamine Allergy (Mild, Verified 03/20/24 08:02) Fatigue Home Medications: Ezetimibe 10 mg [Zetia 10 MG] 10 mg PO HS 06/10/18 [History] Metoprolol Tartrate 50 mg [Lopressor 50 MG] 25 mg PO BID 06/10/18 [History] Magnesium Oxide 400 mg PO BID 01/18/24 [History] Pravastatin Sodium 40 mg PO DAILY 01/18/24 [History] Hx Tetanus, Diphtheria Vaccination/Date Given: No (UNKNOWN) Hx Influenza Vaccination/Date Given: Yes Hx Pneumococcal Vaccination/Date Given: No Immunizations Up to Date: Yes Travel Risk - International Travel Have you traveled outside of the country in past 3 weeks: No - Emerging Infectious Disease Are you exhibiting symptoms associated with any current EIDs: No - Review of Systems Constitutional: No Fever Respiratory: No Dyspnea Cardiac: No Chest Pain Abdominal/Gastrointestinal: No Abdominal Pain, No Nausea, No Vomiting, No Diarrhea - Past Medical History Pertinent Past Medical History: Yes Neurological History: No Pertinent History ENT History: Cataracts, Other Cardiac History: Arrhythmia, Deep Vein Thrombosis, High Cholesterol, Myocardial Infarction ([place]) Respiratory History: Pneumonia, Pulmonary Embolism Endocrine Medical History: No Pertinent History Musculoskeletal History: Rheumatoid Arthritis GI Medical History: Hepatitis History: No Pertinent History Psycho-Social History: Anxiety, Panic Disorder Male Reproductive Disorders: No Pertinent History Other Medical History: PE 8-1-12 History Afib. Heb B back in 1992, Ankylosing Spondylitis Form of RA. Last time treated for Panic Disorder 2011 - Past Surgical History Past Surgical History: Yes Neuro Surgical History: No Pertinent History Cardiac: Cardiac Catheterization, Other Respiratory: No Pertinent History Gastrointestinal: No Pertinent History Genitourinary: No Pertinent History Musculoskeletal: No Pertinent History Male Surgical History: No Pertinent History Other Surgical History: Dental surgery, cardiac ablation - Social History Smoking Status: Never smoker Exposure to second hand smoke: No Drug Use: none Patient Lives Alone: No - Social Determinants of Health Will the patient participate in the screening: Yes Do you worry about a steady place to live?: No Do you have any problems with any of the following?: No known problems In the past 12 months,have you had to go without utilities?: No Transportation Issues: No Has anyone in your support network made you feel unsafe?: No Have you or anyone in your house had to go without enough: No - Nursing Vital Signs Nursing Vital Signs: Initial Vital Signs Pulse Rate 95 H 03/20/24 08:00 Respiratory Rate 18 03/20/24 08:00 Blood Pressure 164/86 03/20/24 08:00 O2 Sat by Pulse Oximetry 97 03/20/24 08:00 Pain Scale Pain Intensity 0 - Physical Exam General Appearance: alert Ears, Nose, Throat Exam: pharynx normal Neck Exam: normal inspection Respiratory Exam: lungs clear Cardiovascular Exam: normal heart sounds Gastrointestinal/Abdomen Exam: normal bowel sounds Extremity Exam: No pedal edema Neurologic Exam: alert, cooperative Skin Exam: warm, dry SpO2 Interpretation: normal SpO2: 97 O2 Delivery: Room Air - Course Nursing assessment & vital signs reviewed: Yes EKG Interpreted by Me: RATE (109), Sinus Tach, Left [place] Deviation, Other (QTc = 454; LAFB) - Radiology Exams Chest X-ray Interpretation: Interpreted by me, No Pneumonia Ordered Tests: Active Orders 24 hr Category Date Time Status Ip Litigation Paralegal STAT Care 03/20/24 08:27 Active EKG-ER Only STAT Care 03/20/24 08:26 Active EKG-ER Only STAT Care 03/20/24 12:06 Active IV Insertion STAT Care 03/20/24 08:26 Active Telemetry q4h Care 03/20/24 09:49 Active CHEST 2 VIEWS (PA AND LAT) Stat Exams 03/20/24 08:26 Taken BMP Stat Lab 03/20/24 09:00 Completed CBC W DIFF Stat Lab 03/20/24 08:26 Completed D-DIMER QUANTITATIVE Stat Lab 03/20/24 09:00 Completed MAGNESIUM Stat Lab 03/20/24 09:00 Completed Potassium (Lab Test) [Potassium] Stat Lab 03/20/24 12:15 Completed TROPONIN Q4H Lab 03/20/24 09:00 Completed TROPONIN Q4H Lab 03/20/24 12:15 Completed TROPONIN Q4H Lab 03/20/24 16:30 Ordered TSH, 3RD Generation Stat Lab 03/20/24 09:00 Completed Medication Summary Generic Name Dose Route Start Last Admin Trade Name Freq PRN Reason Stop Dose Admin Sodium Chloride 1,000 mls @ 125 mls/hr 03/20/24 10:00 03/20/24 09:54 Sodium Chloride 0.9% 1000 Ml IV 04/19/24 09:59 200 mls/hr .Q8H RALPH Administration Discontinued Medications Generic Name Dose Route Start Last Admin Trade Name Freq PRN Reason Stop Dose Admin Potassium Chloride 20 meq in 100 mls @ 50 mls/hr 03/20/24 09:49 03/20/24 09:54 Potassium Chloride 20 Meq In Water 100ml IV 03/20/24 11:48 50 mls/hr STAT ONE Administration Potassium Chloride Confirm 03/20/24 09:53 Potassium Chloride 20 Meq In Water 100ml Administered 03/20/24 09:54 Dose 100 mls @ ud IV .STK-MED ONE Lab/Rad Data: Laboratory Result Diagrams 03/20/24 08:26 03/20/24 12:15 Laboratory Results 03/20/24 03/20/24 03/20/24 Range/Units 12:15 12:15 09:02 WBC (4.23-9.07) x10^3/uL RBC (4.63-6.08) x10^6/uL Hgb (13.7-17.5) g/dL Hct (40.1-51.0) % MCV (79.0-92.2) fL MCH (25.7-32.2) pg MCHC (32.3-36.5) g/dL RDW (11.6-14.4) % Plt Count (163-337) x10^3/uL MPV (9.4-12.4) fL Gran % (34.0-67.9) % Immature Gran % (Auto) (0.001-0.429) % Nucleat RBC Rel Count (0.00-0.2) % Eos # (Auto) (0.04-0.54) x10^3/uL Immature Gran # (Auto) (0.001-0.031) x10^3u/L Absolute Lymphs (auto) (1.32-3.57) x10^3/uL Absolute Monos (auto) (0.30-0.82) x10^3/uL Absolute Nucleated RBC (0.00-0.012) x10^3u/L Lymphocytes % (21.8-53.1) % Monocytes % (5.3-12.2) % Eosinophils % (0.8-7.0) % Basophils % (0.2-1.2) % Absolute Granulocytes (1.78-5.38) x10^3/uL Basophils # (0.01-0.08) x10^3/uL D-Dimer (0.0-0.50) mg/L Sodium (135-145) mmol/L Potassium 4.2 D (3.5-5.1) mmol/L Chloride (98-107) mmol/L Carbon Dioxide (22-30) mmol/L Anion Gap (5-15) MEQ/L BUN (9-20) mg/dL Creatinine (0.66-1.25) mg/dL Estimated GFR ML/MIN Glucose (74-106) mg/dL Calcium (8.4-10.2) mg/dL Magnesium (1.6-2.3) mg/dL Troponin I < 0.012 (0.000-0.033) ng/mL Free T4 1.10 (0.78-2.19) ng/dL TSH 3rd Generation (0.470-4.680) mIU/L 03/20/24 03/20/24 03/20/24 Range/Units 09:00 09:00 09:00 WBC (4.23-9.07) x10^3/uL RBC (4.63-6.08) x10^6/uL Hgb (13.7-17.5) g/dL Hct (40.1-51.0) % MCV (79.0-92.2) fL MCH (25.7-32.2) pg MCHC (32.3-36.5) g/dL RDW (11.6-14.4) % Plt Count (163-337) x10^3/uL MPV (9.4-12.4) fL Gran % (34.0-67.9) % Immature Gran % (Auto) (0.001-0.429) % Nucleat RBC Rel Count (0.00-0.2) % Eos # (Auto) (0.04-0.54) x10^3/uL Immature Gran # (Auto) (0.001-0.031) x10^3u/L Absolute Lymphs (auto) (1.32-3.57) x10^3/uL Absolute Monos (auto) (0.30-0.82) x10^3/uL Absolute Nucleated RBC (0.00-0.012) x10^3u/L Lymphocytes % (21.8-53.1) % Monocytes % (5.3-12.2) % Eosinophils % (0.8-7.0) % Basophils % (0.2-1.2) % Absolute Granulocytes (1.78-5.38) x10^3/uL Basophils # (0.01-0.08) x10^3/uL D-Dimer < 0.19 (0.0-0.50) mg/L Sodium 138 (135-145) mmol/L Potassium 3.2 L (3.5-5.1) mmol/L Chloride 105 (98-107) mmol/L Carbon Dioxide 22 (22-30) mmol/L Anion Gap 14.5 (5-15) MEQ/L BUN 14 (9-20) mg/dL Creatinine 1.14 (0.66-1.25) mg/dL Estimated GFR 75.5 ML/MIN Glucose 230 H (74-106) mg/dL Calcium 9.2 (8.4-10.2) mg/dL Magnesium 2.0 (1.6-2.3) mg/dL Troponin I < 0.012 (0.000-0.033) ng/mL Free T4 (0.78-2.19) ng/dL TSH 3rd Generation 2.011 (0.470-4.680) mIU/L 03/20/24 Range/Units 08:26 WBC 6.3 (4.23-9.07) x10^3/uL RBC 4.94 (4.63-6.08) x10^6/uL Hgb 14.5 (13.7-17.5) g/dL Hct 41.6 (40.1-51.0) % MCV 84.2 (79.0-92.2) fL MCH 29.4 (25.7-32.2) pg MCHC 34.9 (32.3-36.5) g/dL RDW 13.2 (11.6-14.4) % Plt Count 195 (163-337) x10^3/uL MPV 10.3 (9.4-12.4) fL Gran % 54.8 (34.0-67.9) % Immature Gran % (Auto) 0.2 (0.001-0.429) % Nucleat RBC Rel Count 0.0 (0.00-0.2) % Eos # (Auto) 0.10 (0.04-0.54) x10^3/uL Immature Gran # (Auto) 0.01 (0.001-0.031) x10^3u/L Absolute Lymphs (auto) 2.33 (1.32-3.57) x10^3/uL Absolute Monos (auto) 0.37 (0.30-0.82) x10^3/uL Absolute Nucleated RBC 0.00 (0.00-0.012) x10^3u/L Lymphocytes % 37.0 (21.8-53.1) % Monocytes % 5.9 (5.3-12.2) % Eosinophils % 1.6 (0.8-7.0) % Basophils % 0.5 (0.2-1.2) % Absolute Granulocytes 3.45 (1.78-5.38) x10^3/uL Basophils # 0.03 (0.01-0.08) x10^3/uL D-Dimer (0.0-0.50) mg/L Sodium (135-145) mmol/L Potassium (3.5-5.1) mmol/L Chloride (98-107) mmol/L Carbon Dioxide (22-30) mmol/L Anion Gap (5-15) MEQ/L BUN (9-20) mg/dL Creatinine (0.66-1.25) mg/dL Estimated GFR ML/MIN Glucose (74-106) mg/dL Calcium (8.4-10.2) mg/dL Magnesium (1.6-2.3) mg/dL Troponin I (0.000-0.033) ng/mL Free T4 (0.78-2.19) ng/dL TSH 3rd Generation (0.470-4.680) mIU/L - Progress Progress: improved Progress Note: 03/20/24 12:33 Repeat EKG @ 1228: rate=60, sinus rhythm, LAFB; QTc = 419. 03/20/24 12:53 Pt states he feels better. Counseled pt/family regarding: lab results, diagnosis, need for follow-up, rad results Medical Desision Making - Diagnostic Testing Diagnostic test were ordered, analyzed, and reviewed by me: Yes Radiological Interpretation: Interpreted by me - Departure Departure Disposition: Home Clinical Impression: Palpitations, Hypokalemia Condition: Stable Critical Care Time: No Referrals: LEONOR JESUS MD [Primary Care Provider] - Follow up/PCP as directed Instructions: Palpitations (DC) Additional Instructions: Follow up with private doctor tomorrow.
[2024-03-20 08:45] LABS: Absolute Neutrophil Ct (ANC) 3.45 x10^3/uL (1.78-5.38); BASOPHIL % 0.5 % (0.2-1.2); Basophil (Absolute #) 0.03 x10^3/uL (0.01-0.08); Eosinophil % 1.6 % (0.8-7.0); Hematocrit 41.6 % (40.1-51.0); Hemoglobin 14.5 g/dL (13.7-17.5); IMMATURE GRAN # 0.01 x10^3u/L (0.001-0.031); IMMATURE GRAN % 0.2 % (0.001-0.429); Lymphocyte (Absolute #) 2.33 x10^3/uL (1.32-3.57); Mean Cell Volume 84.2 fL (79.0-92.2); Mean Corpuscular Hemoglobin 29.4 pg (25.7-32.2); Mean Corpuscular Hgb Concent. 34.9 g/dL (32.3-36.5); Mean Platelet Volume 10.3 fL (9.4-12.4); Monocyte (Absolute #) 0.37 x10^3/uL (0.30-0.82); Monocytes % 5.9 % (5.3-12.2); Neutrophil % 54.8 % (34.0-67.9); Platelet Count 195 x10^3/uL (163-337); Red Blood Count 4.94 x10^6/uL (4.63-6.08); Red Cell Distribution Width 13.2 % (11.6-14.4); White Blood Count 6.3 x10^3/uL (4.23-9.07)
[2024-03-20 09:34] LABS: ANION GAP 14.5 MEQ/L (5-15); Calcium 9.2 mg/dL (8.4-10.2); Creatinine 1 1.14 mg/dL (0.66-1.25); EST GLOMERULAR FILTRATION RATE 75.5 ML/MIN; Potassium 3.2 mmol/L (3.5-5.1); TSH, 3RD Generation 2.011 mIU/L (0.470-4.680)
[2024-03-20] MEDS ORDERED: POTASSIUM CHLORIDE 20 mEq IN WATER 100ML 100 ML IV ONE (09:53)
[2024-03-20] MEDS ORDERED: Sodium Chloride 0.9% 1000 ML 1,000 ML ONE (09:53)
[2024-03-20] MEDS: POTASSIUM CHLORIDE 20 mEq IN WATER 100ML 20 MEQ/100 ML BAG IV ONE (09:54)
[2024-03-20] MEDS: Sodium Chloride 0.9% 1000 ML 1,000 ML IV SCH (09:54)
[2024-03-20 12:35] VITALS: O2SAT 97
[2024-03-20 13:10] VITALS: BP 115/73; PULSE 62; RESP 16
--- NOTE | 2024-03-20 19:38 | XRAY ---
Indication: Palpitations. Comparison: August 09, 2018 PA/lateral chest again hyperinflated with chronic right costophrenic angle blunting. No focal infiltrate, consolidation, or large effusion. Heart not enlarged. Bony thorax intact again with minimal degenerative changes. Impression: Nonacute hyperinflated chest with chronic features.
== END 2024-03-20 13:12 | disposition home or self-care (01) ==
LOC: ED 07:59
DX: R00.2 Palpitations (principal); E87.6 Hypokalemia; Z86.79 Personal history of other diseases of the circulatory system
CPT/HCPCS: 36415; 71046; 80048; 83735; 84132; 84439; 84443; 84484; 85025; 85379; 93005; 93041; 96365; 96366; 99284; 99285; J3480